=== PATIENT | female | born 1945 | race Caucasian/White ===

== ENCOUNTER 2017-11-21 09:00 | Outpatient (RCR) | payer MEDICARE, OTHER ==
[2016-12-14 13:11] VITALS: BMI 30.8
--- NOTE | 2017-10-17 10:16 | PT INITIAL EVALUATION ---
MEDICAL DIAGNOSIS: Back Pain TREATMENT DIAGNOSIS: Back Pain, Thoracic Dysfunction, Generalized Weakness DATE OF ONSET: 10/17/17 SUBJECTIVE: Dori is 71 year-old female presenting to physical therapy following a recent acute on chronic bout of thoracic back pain with radiating symptoms and general UE muscular weakness. Pt reports that pain really increased about 3 weeks ago and has since been about a 8/10 most of the time. Pain increases throughout the day with ADL's and can increase to a 10/10. Pain is currently located between T1-T11 with radiation out to B shoulders and mid ribs. When pain is at it's worst it travels up into the neck, down into the lumbar spine and B fingers get numb with pins and needle sensations. Pt reports that throughout the day her arms feel more fatigued and she can't play with her grandkids like she used to because she is so tired. Pain is not relieved with lying on the couch or bed. REHAB PROBLEM LIST: Increased Pain Decreased ROM Impaired Bed Mobility Decreased Strength Decreased Endurance Decreased Function Decreased ADL's PREVIOUS MEDICAL HISTORY: Hx of breast CA, PT treatment for shoulder impingement in the past secondary to axillary cording. OCCUPATION: Retired OBJECTIVE: Posture: Pt has moderate thoracic kyphosis with forward head and rounded shoulders. ROM: UE ROM full without pain B but with fatigue. Thoracic ROM: Ext-severe restrictions with mild pain in thoracic, flex- full without pain, R rotation-full with high pain radiating into R deltoid region, L rotation- moderate restrictions with slight pain in thoracic spine Palpation: Pt is tender to palpation from T1-T11 and laterally to the level of the GH joint B. Sensation: UE sensation intact to light touch Special Tests: Colin Repeated motion: Ext: no change in pain status with improved ROM with repetitions, L rotation: centralization of pain to within 2 inches of thoracic spine on L and 3 inches on R to the level of T6-9. Other Objective Findings: Neck pain and Disability Index: ASSESSMENT: Pt shows signs and symptoms consistent with thoracic dysfunction with neural impingement resulting in radiating pain and generalized UE weakness. PT is indicated to address the above listed deficits to return pt to prior level of function and decrease pain. Short Term Goals In 2 weeks pt will centralize pain to the thoracic spine only without radiation for increased functional ability to perform ADL's. In 2 weeks pt will decrease pain to <5/10 for increased functional ability to perform ADL's. In 4 weeks pt will increase UE strength to >4/5 for improved functional ability to perform ADL's. In 4 weeks pt will decrease pain to <3/10 for increased functional ability to perform ADL's. Patient's Goals Decrease thoracic pain. PLAN: Patient to be seen for Manual Therapy/STM/MET Strengthening/condition Ice/Heat Range of Motion Spinal Stabilization Ultrasound Stretching Iontophoresis Neuromuscular Re-ed Closed Chain Program Electrical Stim Posture/Body mechanics Biofeedback Home Exercise Program Mech./Manual Traction Therapeutic Activities 3x/Week for 4 Weeks If you have any questions, comments, or concerns about this report or plan, please contact me at . Thank you, Ignrid Hernandez, PT, DPT, CLT MTDD
[~2017-11-21 09:00] MED LIST: AA/A14DR7 OT; ACE3 PO; ACET-1966 PO; ALPR-1 PO; AMOX-362 PO; AMOX-559 PO; ASCO-182 PO; ASPI-1471 PO; ASPI81TA94 PO; ATOR20TA22 PO; ATOR20TA65 PO; ATR10 PO; AZI250 PO; AZIT-17 PO; BACDS PO; CALC500T6 PO; CELE-1 PO; CEPH-13 PO; CETI-176 PO; CHEMO; CHOL10005 PO; CIPR500S3 PO; CITA-139 PO; CITA-156 PO; CYC10 PO; CYCL10TA29 PO; DEX4 PO; DOCU-202 PO; DULO30CA6 PO; ERTA1VIA2 IV; FLU45SYR25 IM ONLY; HYDR-2966 PO; HYDR-4309 PO; HYDR473S4 PO; IBUP-1618 PO; IBUP-56 PO; INSU100C14 SQ; INSU100V24 SQ; LEVO750T27 PO; LINA5TAB PO; LIS10 PO; LISI20TA29 PO; LOR5 PO; LOR5/325 PO; MAGN400T36 PO; MECL-205 PO; MECL25TA9 PO; MET50 PO; MET500 PO; METF-420 PO; METH4TAB66 PO; METO100T20 PO; NAP500 PO; NIT4 SL; NOVOLINRPT IJ; NPH,100V12 SQ; NPH,100V2 SQ; NPH,100V2 SUBQ; NYST15CR32 TP; ONDA8TAB94 PO; OSE75 PO; OXYGENHOME INH; PENI-22 PO; PENI-24 PO; PER PO; PHEN200T32 PO; PHENA200 PO; PNEU0.5D3 IM; PRED-1 PO; PREDNISONE; PROM5SYR PO; SPIR1TAB26 PO; SULF-198 PO; TRAM-420 PO; VANC1FRO2 IV; [UNRECOGNIZED DRUG - CODE] PO; [UNRECOGNIZED DRUG - CODE] PO; [UNRECOGNIZED DRUG - CODE] PO; [UNRECOGNIZED DRUG - REMARK]; [UNRECOGNIZED DRUG - REMARK]
--- NOTE | 2017-11-21 09:37 | PT PLAN OF CARE ---
Physician: Enriqueta Hodge APRN [employer]-C Patient is being seen: 2x/Week Therapist: Ingrid Hernandez, PT, DPT, CLT Medical Diagnosis: Back Pain Treatment Diagnosis: Back Pain, Thoracic Dysfunction, Generalized Weakness Date of Onset: 10/17/17 Date of Initial Evaluation: 10/17/17 Date patient was last seen: 11/21/17 Number of treatments: 6 Number of cancellations/No shows: 2 INTERVENTIONS: Manual Therapy/STM/MET Strengthening/condition Ice/Heat Range of Motion Spinal Stabilization Ultrasound Stretching Iontophoresis Neuromuscular Re-ed Closed Chain Program Electrical Stim Posture/Body mechanics Biofeedback Home Exercise Program Mech./Manual Traction Therapeutic Activities GOALS: In 2 weeks pt will centralize pain to the thoracic spine only without radiation for increased functional ability to perform ADL's. MET In 2 weeks pt will decrease pain to <5/10 for increased functional ability to perform ADL's. MET In 4 weeks pt will increase UE strength to >4/5 for improved functional ability to perform ADL's. MET In 4 weeks pt will decrease pain to <3/10 for increased functional ability to perform ADL's. MET PATIENT'S GOAL: Decrease thoracic pain. Status of Patient's Goals: 4/4 Goals MET Patient Compliance: Excellent Prognosis: Good Reasons for continuing therapy: Dori is to discharge from physical therapy at this time secondary to completion of 4/4 functional goals. At the time of discharge pt reported no pain and that she was very compliant with her HEP. Upper extremity strength was full and equal bilaterally and thoracic mobility was full without pain. Pt reported that she had increased function with ADL's including doing laundry, cooking and keeping up with her grandchildren. Pt is to continue with HEP at this time to maintain functional strength and mobility. Posture: Pt has minimal thoracic kyphosis with forward head and rounded shoulders. ROM: UE ROM full without pain B. Thoracic ROM: Full without pain Strength: B Flexion/ext: 4+/5, IR B: 4/5, all others 5/5 B. Special Tests: Neck Pain Disability Index Score: 3/50 If you have any questions or concerns, please feel free to contact me at [phone]. Thank you, Ingrid Hernandez, PT, DPT, CLT [facility]
== END 2017-11-21 18:00 | disposition home or self-care (01) ==
LOC: PT 09:00
PROVIDERS: ATTEND Nurse Practitioner Family
DX: M54.6 Pain in thoracic spine (principal); M99.02 Segmental and somatic dysfunction of thoracic region; M62.81 Muscle weakness (generalized); Z85.3 Personal history of malignant neoplasm of breast
CPT/HCPCS: 97161

== ENCOUNTER → 2017-12-06 | Outpatient (CLI) | payer MEDICARE, OTHER ==
[2016-12-14 13:11] VITALS: BMI 30.8
[2017-12-06 16:20] LABS: PLATELET COUNT, AUTOMATED 166 K/uL (150-450)
== END ==
LOC: LAB 16:02
PROVIDERS: ATTEND Nurse Practitioner Family
DX: D64.9 Anemia, unspecified (principal); I10 Essential (primary) hypertension; E11.9 Type 2 diabetes mellitus without complications; Z79.4 Long term (current) use of insulin
CPT/HCPCS: 36415; 82040; 82247; 82310; 82374; 82435; 82565; 82947; 83036; 84075; 84132; 84155; 84295; 84439; 84443; 84450; 84460; 84481; 84520; 85025

== ENCOUNTER → 2017-12-08 | Outpatient (CLI) | payer MEDICARE, OTHER ==
[2016-12-14 13:11] VITALS: BMI 30.8
--- NOTE | 2017-12-08 11:46 | RADIOLOGY IMAGING REPORT ---
FACILITY: [facility] - [place] PATIENT NAME: Dori Reddy : 1945 MR: [id number] V: [id number] EXAM DATE: ORDERING PHYSICIAN: ELICEO GONG TECHNOLOGIST: Location: [facility] - [place] Patient: Dori Reddy : 1945 Visit/Account:[id number] Date of Sevice: 12/08/2017 Exam type: RIBS RIGHT History: right rib pain - hx of breast ca Comparison: PA and lateral chest June 07, 2017. Findings: There is chronic elevation of the right hemidiaphragm and chronic prominence of bronchovascular radames ngs the lower lung masno. No acute areas of pulmonary consolidation identified. Cardiac silhouette is normal in size. There are surgical clips in the right axillary region. A BB was placed over the location of patient's pain which projects over the anterior lower right ribs. There is no evidence of acute fracture, or lytic or blastic bone lesion. Peritendinous calcifications the right shoulder are present IMPRESSION: 1. No evidence of acute fracture, lytic or blastic bone lesion involving the right ribs. Chronic lung changes unchanged Report Dictated By: Nat Barnett MD at 12/08/2017 11:39 AM Report E-Signed By: Nat Barnett MD at 12/08/2017 11:42 AM WSN:[email or web address]
--- NOTE | 2017-12-08 11:48 | RADIOLOGY IMAGING REPORT ---
FACILITY: [facility] PATIENT NAME: Dori Reddy : 1945 MR: [id number] V: [id number] EXAM DATE: ORDERING PHYSICIAN: ELICEO GONG TECHNOLOGIST: Location: [facility] - [place] Patient: Dori Reddy : 1945 Visit/Account:[id number] Date of Sevice: 12/08/2017 Exam type: THORACIC SPINE 3 VIEWS History: thoracic back pain - hx of breast ca Comparison: March 07, 2009. Findings: There is a gentle dextroconvex scoliosis of the thoracic spine. There are moderate multilevel spondy lotic changes of the thoracic spine with moderate disc space narrowing and marginal osteophytes most prominent in the mid to lower thoracic spine which have increased when compared to the prior study. No evidence of acute fractures or subluxations seen IMPRESSION: 1. Moderate multilevel spondylotic changes of the thoracic spine which have increased when compared to the prior study Report Dictated By: Nat Barnett MD at 12/08/2017 11:42 AM Report E-Signed By: Nat Barnett MD at 12/08/2017 11:44 AM WSN:[email or web address]
== END ==
LOC: RAD 11:00
PROVIDERS: ATTEND Nurse Practitioner Family
DX: M47.894 Other spondylosis, thoracic region (principal)
CPT/HCPCS: 71100; 72072

== ENCOUNTER → 2017-12-26 | Outpatient (CLI) | payer MEDICARE, OTHER ==
[2016-12-14 13:11] VITALS: BMI 30.8
[~2017-12-26] MED LIST changes: +BENZ200C15 PO; +ESCI5TAB10 PO
--- NOTE | 2017-12-26 15:33 | RADIOLOGY IMAGING REPORT ---
FACILITY: [facility] - [place] PATIENT NAME: Dori Reddy : 1945 MR: [id number] V: [id number] EXAM DATE: ORDERING PHYSICIAN: ELICEO GONG TECHNOLOGIST: Location: [facility] - [place] Patient: Dori Reddy : 1945 Visit/Account:[id number] Date of Sevice: 12/26/2017 CHEST PA AND LAT Indication: cough / hypoxia Comparison: Chest x-ray 06/07/2017 Findings: Lungs: Right hemidiaphragm is elevated, unchanged. Interstitial linear densities are seen in the per iphery of both lungs, stable. There is no acute airspace opacity. Mediastinum/pulmonary vasculature: Heart size and pulmonary vasculature are normal. Bones/soft tissues: Normal. IMPRESSION: 1. No acute airspace opacity or pneumonia. 2. Chronic interstitial changes both lungs, stable. Report Dictated By: Uriel Ochoa at 12/26/2017 3:27 PM Report E-Signed By: Uriel Ochoa at 12/26/2017 3:28 PM WSN:[email or web address]
== END ==
LOC: RAD 14:56
PROVIDERS: ATTEND Nurse Practitioner Family
DX: R05 Cough (principal); R09.02 Hypoxemia
CPT/HCPCS: 71046

== ENCOUNTER → 2018-02-08 | Outpatient (CLI) | payer MEDICARE, OTHER ==
[2016-12-14 13:11] VITALS: BMI 30.8
[2018-02-08 11:20] LABS: PLATELET COUNT, AUTOMATED 181 K/uL (150-450)
--- NOTE | 2018-02-08 13:57 | RADIOLOGY IMAGING REPORT ---
FACILITY: [facility] PATIENT NAME: Dori Reddy : 1945 MR: [id number] V: [id number] EXAM DATE: ORDERING PHYSICIAN: AMARI WORRELL TECHNOLOGIST: Location: [facility] Patient: Dori Reddy : 1945 Visit/Account:[id number] Date of Sevice: 02/08/2018 Exam type: CHEST PA AND LAT History: Chest heaviness and R chest wall pain x3 weeks Comparison: December 26, 2017. Findings: Chronic pleural parenchymal scarring throughout the lungs most prominent in the lung bases appear sim ilar to the prior study. There is no evidence of acute-appearing pulmonary consolidation pleural eff usions or overt pulmonary edema. No evidence of pneumothorax or pneumomediastinum. Cardiac silhouet te is normal in size. There is a gentle dextroconvex scoliosis of the thoracic spine and moderate sp ondylotic changes. IMPRESSION: 1. Pleural parenchymal scarring bilaterally throughout the lungs although no evidence of acute pulmo nary consolidation Report Dictated By: Nat Barnett MD at 02/08/2018 1:50 PM Report E-Signed By: Nat Barnett MD at 02/08/2018 1:54 PM WSN:[email or web address]
== END ==
LOC: LAB 10:59
PROVIDERS: ATTEND Nurse Practitioner Primary Care
DX: M47.894 Other spondylosis, thoracic region (principal); R91.8 Other nonspecific abnormal finding of lung field
CPT/HCPCS: 36415; 71046; 82040; 82247; 82310; 82374; 82435; 82565; 82947; 84075; 84132; 84155; 84295; 84450; 84460; 84520; 85025

== ENCOUNTER → 2018-02-13 | Outpatient (CLI) | payer MEDICARE, OTHER ==
[2016-12-14 13:11] VITALS: BMI 30.8
--- NOTE | 2018-02-15 16:03 | RADIOLOGY IMAGING REPORT ---
FACILITY: [facility] PATIENT NAME: Dori Reddy : 1945 MR: [id number] V: [id number] EXAM DATE: ORDERING PHYSICIAN: AMARI WORRELL TECHNOLOGIST: Location: [facility] Patient: Dori Reddy : 1945 Visit/Account:[id number] Date of Sevice: 02/13/2018 WHOLE BODY BONE SCAN HISTORY: Chest wall pain, history of breast cancer TECHNIQUE: 24.6 mCi technetium 99m HDP was injected intravenously. Delayed anterior and posterior wh ole body gamma camera images were obtained. Additional gamma camera images: Right and left lateral skull COMPARISON: Cervical spine series October 29, 2013 thoracic spine December 08, 2017 CT chest June 07, 2017 FINDINGS: Bone radiotracer activity: Degenerative type uptake seen over the knees and ankles and feet Increased uptake seen over the cervical and thoracic spine consistent with the previous plain film fi ndings of degenerative arthritis. There is a focal area of isotope uptake seen over the medial aspect of a posterior right rib Extraosseous radiotracer activity: There is increased as well uptake over the right breast to lesser extent left breast. Renal and urinary collecting system activity: Unremarkable. IMPRESSION: Multifocal areas of degenerative type uptake Faint uptake seen over the medial aspect of an inferior right rib. This could be related to prior tr auma although correlation with plain film or CT recommended Isotope uptake is seen over the breasts, right greater than left. Given the clinical history of ches t wall pain and history of right breast cancer follow up breast MR with and without contrast recommen ded for further evaluation Report Dictated By: Nat Barnett MD at 02/15/2018 3:49 PM Report E-Signed By: Nat Barnett MD at 02/15/2018 3:59 PM WSN:[email or web address]
== END ==
LOC: NUC 01:24
PROVIDERS: ATTEND Nurse Practitioner Primary Care
DX: R92.8 Other abnormal and inconclusive findings on diagnostic imaging of breast (principal)
CPT/HCPCS: 78306; A9503

== ENCOUNTER → 2018-02-15 | Outpatient (CLI) | payer MEDICARE, OTHER ==
[2016-12-14 13:11] VITALS: BMI 30.8
--- NOTE | 2018-02-16 14:00 | RADIOLOGY IMAGING REPORT ---
FACILITY: [facility] PATIENT NAME: ALEK LOCKETT : [id number] MR: [id number] V: [id number] EXAM DATE: [id number] ORDERING PHYSICIAN: ELICEO GONG TECHNOLOGIST: Urvashi George PROCEDURE:BILATERAL DIAGNOSTIC DIGITAL MAMMOGRAM WITH CAD ASSISTED INTERPRETATION & 3D TOMOSYNTHESIS COMPARISON:Prior mammograms 07/26/17, 12/07/16, 07/07/16. INDICATIONS:PRIOR HISTORY OF RIGHT BREAST CANCER/ABNORMAL MAMMO FINDINGS: The Right breast is smaller than the Left consistent with previous lumpectomy. There is also skin thickening over the Right breast consistent with prior radiation therapy. Area of architectural distortion in the upper outer quadrant of the Right breast again seen which has remained stable likely related to postsurgical scaring. The parenchymal pattern throughout the Left breast has also remained stable. There was no demonstration of malignant appearing mass or calcifications in either breast at this time. The previously noted flame shaped area of increased density projecting over the chest wall in the upper portion of breast on the prior Left MLO view is no longer seen. DIAGNOSTIC CATEGORY 0--INCOMPLETE: NEED ADDITIONAL IMAGING EVALUATION. RECOMMENDATIONS: BREAST MRI: BILATERAL BREASTS. IMPRESSION: BIRADS 0: Incomplete No mammographic abnormality identified at this time other than postsurgical scaring upper outer quadrant of the Right breast. A bilateral breast MR with and without contrast however is recommended to follow-up findings described in the prior MR dated 08/03/17. Dictated by: Nat Barnett M.D. on 02/15/2018 at 16:54 Transcribed by: RADHA on 02/16/2018 at 11:14 Approved by: Nat Barnett M.D. on 02/16/2018 at 13:59 [facility]
== END ==
LOC: MAMO 01:00
PROVIDERS: ATTEND Nurse Practitioner Family
DX: R92.8 Other abnormal and inconclusive findings on diagnostic imaging of breast (principal)
CPT/HCPCS: 77066

== ENCOUNTER → 2018-02-21 | Outpatient (CLI) | payer MEDICARE, OTHER ==
[2016-12-14 13:11] VITALS: BMI 30.8
[~2018-02-21] MED LIST changes: +GADOBENATE 529MG/1ML 15ML VIAL IVP ONE; +NITR-105 PO; +NS 0.9% 20 ML SDV 40 ML ONE
--- NOTE | 2018-02-23 16:21 | RADIOLOGY IMAGING REPORT ---
FACILITY: [facility] PATIENT NAME: ALEK LOCKETT : [id number] MR: [id number] V: [id number] EXAM DATE: [id number] ORDERING PHYSICIAN: ELICEO GONG TECHNOLOGIST: Cassie Lawrence PROCEDURE:BREAST BILATERAL W/O AND/OR WITH CONTRAST COMPARISON:Most recent mammograms 02/15/18, Total Body Bone Scan 02/13/18, Prior Breast MR 08/03/17. INDICATIONS:ABNORMAL MAMMO/6 MONTH FOLLOW UP TECHNIQUE: All imaging was performed prone in a dedicated breast coil. Axial & coronal T1 weighted images, axial T2 STIR & gradient echo imaging was performed of both breasts. Axial T1 weighted Fat Sat dynamically enhanced imaging was performed of both breasts using 5 dynamic sequences. The dynamic series was timed for a 90 sec peak. Subtraction imaging was performed. 15ml Multihance was utilized for the post contrast portion of the examination. Post processing was performed using the [employer] workstation. FINDINGS: Small amount of fibroglandular tissue is seen throughout the breasts. Again noted is postsurgical scarring & architectural distortion in the upper outer quadrant of the Right breast from prior lumpectomy. Skin thickening is also noted in the Right breast from prior radiation therapy. In the retroareolar portion of the Right breast immediately adjacent to an area of scarring, there is a small area of contrast enhancement with a 153% peak in plateau kinetics. This is likely related to the Right nipple & could represent an area of fat necrosis. The previously noted small areas of round contrast enhancement in the 12 o'clock position of the Right breast above the areola and in the 11 o'clock position of the Right breast in Zone 3 are barely perceptible at this time. In the retroareolar portion of the Left breast there is a small rounded area of enhancement with a 124% peak in persistent kinetics. This finding is also unchanged when compared to the prior study & may be related to Left nipple or possibly a small amount of fat necrosis. No abnormal areas of masslike or nonmasslike enhancement are identified in either breast. No pathologic appearing adenopathy is seen. No abnormal enhancement identified over the chest wall. The visualized portion of the liver & visualized bones are unremarkable. DIAGNOSTIC CATEGORY 2--BENIGN FINDING. RECOMMENDATIONS: ROUTINE MAMMOGRAM AND CLINICAL EVALUATION. IMPRESSION: BIRADS 2: Benign finding No abnormal areas of masslike or nonmasslike enhancement are identified to suggest recurrent or metastatic breast disease. PLEASE NOTE:A NORMAL MRI DOES NOT EXCLUDE THE POSSIBILITY OF BREAST CANCER. A CLINICALLY SUSPICIOUS PALPABLE LUMP SHOULD BE BIOPSIED. CORRELATION WITH CLINICAL EXAM AND OTHER IMAGING STUDIES IS RECOMMENDED. Dictated by: Nat Barnett M.D. on 02/22/2018 at 15:54 Transcribed by: MJ on 02/23/2018 at 10:37 Approved by: Nat Barnett M.D. on 02/23/2018 at 16:20 [facility]
== END ==
LOC: MRI 01:09
PROVIDERS: ATTEND Nurse Practitioner Family
DX: R92.8 Other abnormal and inconclusive findings on diagnostic imaging of breast (principal)
CPT/HCPCS: 0159T; A9577; C8908; J7050; 77059

== ENCOUNTER → 2018-02-22 | Outpatient (CLI) | payer MEDICARE, OTHER ==
[2016-12-14 13:11] VITALS: BMI 30.8
[~2018-02-22] MED LIST changes: -GADOBENATE 529MG/1ML 15ML VIAL IVP ONE; -NS 0.9% 20 ML SDV 40 ML ONE
== END ==
LOC: LAB 11:21
PROVIDERS: ATTEND Nurse Practitioner Primary Care
DX: N30.00 Acute cystitis without hematuria (principal); R82.79 Other abnormal findings on microbiological examination of urine
CPT/HCPCS: 87088

== ENCOUNTER → 2018-02-27 | Outpatient (CLI) | payer MEDICARE, OTHER ==
[2016-12-14 13:11] VITALS: BMI 30.8
== END ==
LOC: LAB 16:10
PROVIDERS: ATTEND Nurse Practitioner Primary Care
DX: N39.0 Urinary tract infection, site not specified (principal)
CPT/HCPCS: 81001

== ENCOUNTER 2018-06-11 06:47 | Emergency (ER) | payer MEDICARE, OTHER ==
[2016-12-14 13:11] VITALS: Wt 70.8 kg
[~2018-06-11 06:47] MED LIST changes: -CITA-139 PO; +CITA-145 PO; +FLUC150T40 PO; +FLUT9.9S IH; -METF-420 PO; +METF-421 PO
[2018-06-11 07:30] VITALS: BP 131/58
[2018-06-11] MEDS ORDERED: CEPHALEXIN MONO 500 MG CAP PO ONE (07:30)
[2018-06-11] MEDS ORDERED: PHENAZOPYRIDINE 200 MG TAB PO ONE (07:35)
--- NOTE | 2018-06-11 07:37 | ER Report ---
History and Physical Time Seen By MD: 07:00 Hx. of Stated Complaint: PATIENT REPORTS THAT SHE STARTED HAVING SYMPTOMS OF A UTI LAST NIGHT. SHE REPORTS FREQUENT UTI'S HPI/ROS Presents with urinary urgency, frequency, and urgency. No hematuria, No fever/ chills, no back pain. No abdominal pain other than suprapubic spasm. Allergies: Coded Allergies: hydrochlorothiazide (Verified Allergy, Intermediate, GI DISTRESS, 12/19/16) "THINK IT WAS CAUSING PANCREATITIS" celecoxib (Verified Adverse Reaction, Mild, ITCHING, 12/19/16) duloxetine (Verified Adverse Reaction, Unknown, 12/26/17) dysphagia Home Meds Active Scripts Phenazopyridine Hcl (PHENAZOPYRIDINE HCL) 200 Mg Tablet, 200 MG PO TID for 2 Days, #6 TAB Prov:JORGE ORELLANA MD 06/11/18 Cephalexin 500 Mg Tab (KEFLEX 500 MG TAB) 500 Mg Tablet, 500 MG PO BID for 7 Days, #14 TAB Prov:JORGE ORELLANA MD 06/11/18 Tramadol Hcl (TRAMADOL HCL) 50 Mg Tablet, 1 TAB PO TID Y for PAIN, #90 TAB 2 Refills Prov:ELICEO GONG APRN 04/28/18 Citalopram Hydrobromide (CITALOPRAM HBR) 20 Mg Tablet, 1 TAB PO QDAY, #90 TAB 1 Refill Prov:ELICEO GONG APRN 04/28/18 Metoprolol Succinate (METOPROLOL SUCCINATE) 100 Mg Tab.er.24h, 1 TAB PO BID, # 180 TAB 1 Refill Prov:ELICEO GONG APRN 04/28/18 Insulin NPH Human Isophane (Humulin N) 100 Unit/Ml Vial, 20-40 UNITS SQ BID, #6 VIAL 1 Refill 40 units every morning and 20 units every evening. Prov:ELICEO GONG APRN 04/28/18 Atorvastatin Calcium (ATORVASTATIN CALCIUM) 20 Mg Tablet, 1 TAB PO QDAY, #90 TAB 1 Refill Prov:ELICEO GONG APRN 04/28/18 Metformin Hcl (METFORMIN HCL) 1,000 Mg Tablet, 1 TAB PO BID, #180 TAB 1 Refill Prov:ELICEO GONG APRN-C 04/28/18 Fluticasone Propionate (Flonase Allergy Relief) 9.9 Ml [place].susp, 2 EA IH DAILY , #1 BOTTLE 1 Refill Prov:ELICEO GONG APRN-C 04/06/18 Fluconazole (DIFLUCAN) 150 Mg Tablet, 1 TAB PO Q72H, #2 TAB 0 Refills Prov:ELICEO GONG APRN-C 04/06/18 Oxygen (OXYGEN) Inha, 2 L INH Continuous, #2 L Prov:ELICEO GONG APRN-C 06/07/17 [Second Hand Smoke] No Conflict Check Prov:ELICEO GONG APRN-C 06/07/17 Meclizine Hcl (MECLIZINE HCL) 25 Mg Tablet, 1 TAB PO BID Y for DIZZINESS, #14 TAB 5 Refills Prov:ELICEO GONG APRN-C 06/07/17 Reported Medications Aspirin (ASPIR 81) 81 Mg Tablet.dr, 1 TAB PO QDAY, TAB 12/14/16 Cholecalciferol (Vitamin D3) (VITAMIN D3) 1,000 Unit Tablet, 1 CAP PO QDAY, TAB 08/05/16 Hx Smoking: No Smoking Status: Never Smoker Exposure to Second Hand Smoke?: Yes (daughter who lives with her smokes) Hx Substance Use Disorder: No Hx Alcohol Use: Yes Constitutional Vital Sign - Last 24 Hours 06/11/18 06/11/18 06/11/18 06/11/18 06:52 06:55 07:00 07:17 Temp 97.7 Pulse 62 57 Resp 20 B/P (MAP) 140/58 (85) 140/58 138/63 (88) O2 Delivery Room Air 06/11/18 07:30 B/P (MAP) 131/58 (82) Physical Exam GE: A/Ox3 in NAD CV: RRR no m/r/g Lungs: cta b/l Abdomen: soft, NTND DDx: UTI, AAA, kidney stone, appendicitis, Medical Decision Making Data Points Laboratory Hematology Test 06/11/18 06:52 Urine Color Yellow Urine Clarity Cloudy Urine pH 7.0 pH (4.8-9.5) Urine Specific [place] 1.015 Urine Protein 30 mg/dL (NEGATIVE) Urine Glucose (UA) Negative mg/dL (NEGATIVE) Urine Ketones Negative mg/dL (NEGATIVE) Urine Blood Moderate (NEGATIVE) Urine Nitrite Negative (NEGATIVE) Urine Bilirubin Negative (NEGATIVE) Urine Urobilinogen Negative mg/dL (0.2-1.9) Urine Leukocyte Esterase Large (NEGATIVE) Urine RBC 93 /HPF (0-2/HPF) Urine WBC 591 /HPF (0-5/HPF) Urine Squamous Epithelial Cells Many /LPF (</=FEW) Urine Renal Epithelial Cells Many /LPF (NONE-FEW) Urine Bacteria Negative /HPF (NONE-FEW) Urine Mucus None /HPF (NONE-FEW) Urine Yeast (Budding) Many /HPF Chemistry Test 06/11/18 06:52 Urine Color Yellow Urine Clarity Cloudy Urine pH 7.0 pH (4.8-9.5) Urine Specific [place] 1.015 Urine Protein 30 mg/dL (NEGATIVE) Urine Glucose (UA) Negative mg/dL (NEGATIVE) Urine Ketones Negative mg/dL (NEGATIVE) Urine Blood Moderate (NEGATIVE) Urine Nitrite Negative (NEGATIVE) Urine Bilirubin Negative (NEGATIVE) Urine Urobilinogen Negative mg/dL (0.2-1.9) Urine Leukocyte Esterase Large (NEGATIVE) Urine RBC 93 /HPF (0-2/HPF) Urine WBC 591 /HPF (0-5/HPF) Urine Squamous Epithelial Cells Many /LPF (</=FEW) Urine Renal Epithelial Cells Many /LPF (NONE-FEW) Urine Bacteria Negative /HPF (NONE-FEW) Urine Mucus None /HPF (NONE-FEW) Urine Yeast (Budding) Many /HPF Urinalysis Test 06/11/18 06:52 Urine Color Yellow Urine Clarity Cloudy Urine pH 7.0 pH (4.8-9.5) Urine Specific [place] 1.015 Urine Protein 30 mg/dL (NEGATIVE) Urine Glucose (UA) Negative mg/dL (NEGATIVE) Urine Ketones Negative mg/dL (NEGATIVE) Urine Blood Moderate (NEGATIVE) Urine Nitrite Negative (NEGATIVE) Urine Bilirubin Negative (NEGATIVE) Urine Urobilinogen Negative mg/dL (0.2-1.9) Urine Leukocyte Esterase Large (NEGATIVE) Urine RBC 93 /HPF (0-2/HPF) Urine WBC 591 /HPF (0-5/HPF) Urine Squamous Epithelial Cells Many /LPF (</=FEW) Urine Renal Epithelial Cells Many /LPF (NONE-FEW) Urine Bacteria Negative /HPF (NONE-FEW) Urine Mucus None /HPF (NONE-FEW) Urine Yeast (Budding) Many /HPF ED Course/Re-evaluation ED Course Uncomplicated UTI. Not worrisome for AAA or other intraabdominal pathology. Urine culture sent. No fever/chills. No flank pain. Given Keflex and pyridium. Will follow up with PCM this week. Decision to Disposition Date: Jun 11, 2018 Decision to Disposition Time: 07:37 Depart Departure Latest Vital Signs Vital Signs Date Time Temp Pulse Resp B/P (MAP) Pulse Ox O2 Delivery O2 Flow Rate FiO2 06/11/18 07:30 131/58 (82) 06/11/18 07:17 57 06/11/18 06:55 97.7 20 Room Air Impression: Primary Impression: Urinary tract infection Condition: Improved Disposition: HOME OR SELF-CARE Referrals: ELICEO GONG APRN TELEVISION AUDIO ENGINEER-C (PCP) New Scripts Phenazopyridine Hcl (PHENAZOPYRIDINE HCL) 200 Mg Tablet 200 MG PO TID for 2 Days, #6 TAB Prov: JORGE ORELLANA MD 06/11/18 Cephalexin 500 Mg Tab (KEFLEX 500 MG TAB) 500 Mg Tablet 500 MG PO BID for 7 Days, #14 TAB Prov: JORGE ORELLANA MD 06/11/18 Departure Forms: Medications Reconciliation, Patient Portal Information, ER Transition Record Patient Instructions: Urinary Tract Infection in Women (ED) Problem Qualifiers Primary Impression: Urinary tract infection Urinary tract infection type: acute cystitis Hematuria presence: without hematuria Qualified Codes: N30.00 - Acute cystitis without hematuria JORGE ORELLANA MD Jun 11, 2018 07:37
[2018-06-11] MEDS ORDERED: CEPH500T7 PO (07:44)
[2018-06-11] MEDS ORDERED: PHEN200T32 PO (07:44)
== END 2018-06-11 07:50 | disposition home or self-care (01) ==
LOC: ER 06:59
DX: N39.0 Urinary tract infection, site not specified (principal)
CPT/HCPCS: 81001; 87088; 99283; A9270

== ENCOUNTER 2018-06-16 17:45 | Emergency (ER) | payer MEDICARE, OTHER ==
[2016-12-14 13:11] VITALS: Wt 70.8 kg
[~2018-06-16 17:45] MED LIST changes: +CEPH500T7 PO
--- NOTE | 2018-06-16 17:52 | ER Report ---
History and Physical Time Seen By : 17:52 HPI/ROS CHIEF COMPLAINT: Continued urine HISTORY OF PRESENT ILLNESS: 72-year-old female patient presents to emergency room with complaint of being called about a contaminated urine. She was seen here on 11 June with complaints of pain or abdomen. Urinalysis at that time showed large leukocyte esterase, 500 white blood cells in her urine. She states she started on Keflex. She was discharged home. They did culture her urine. She got called that the urine was contaminated they're unsure. If she is having persistent problems he recommended that she come in for evaluation. Patient states she still having some problems. She states she has pain that radiates on the right side up to the back. She denies having any fevers, chills, nausea, vomiting or diarrhea. Patient states she has been taking her medications prescribed. Allergies: Coded Allergies: hydrochlorothiazide (Verified Allergy, Intermediate, GI DISTRESS, 12/19/16) "THINK IT WAS CAUSING PANCREATITIS" celecoxib (Verified Adverse Reaction, Mild, ITCHING, 12/19/16) duloxetine (Verified Adverse Reaction, Unknown, 12/26/17) dysphagia Home Meds Active Scripts Tramadol Hcl (TRAMADOL HCL) 50 Mg Tablet, 1 TAB PO TID Y for PAIN, #90 TAB 2 Refills Prov:ELICEO GONG APRN-Derrell 04/28/18 Citalopram Hydrobromide (CITALOPRAM HBR) 20 Mg Tablet, 1 TAB PO QDAY, #90 TAB 1 Refill Prov:ELICEO GONG APRN-Derrell 04/28/18 Metoprolol Succinate (METOPROLOL SUCCINATE) 100 Mg Tab.er.24h, 1 TAB PO BID, # 180 TAB 1 Refill Prov:ELICEO GONG APRNC 04/28/18 Insulin NPH Human Isophane (Humulin N) 100 Unit/Ml Vial, 20-40 UNITS SQ BID, #6 VIAL 1 Refill 40 units every morning and 20 units every evening. Prov:ELICEO GONG APRN-C 04/28/18 Atorvastatin Calcium (ATORVASTATIN CALCIUM) 20 Mg Tablet, 1 TAB PO QDAY, #90 TAB 1 Refill Prov:ELICEO GONG APRN-C 04/28/18 Metformin Hcl (METFORMIN HCL) 1,000 Mg Tablet, 1 TAB PO BID, #180 TAB 1 Refill Prov:ELICEO GONG MOHSEN LRP- 04/28/18 Oxygen (OXYGEN) Inha, 2 L INH Continuous, #2 L Prov:ELICEO GONG MOHSEN [facility] 06/07/17 [Second Hand Smoke] No Conflict Check Prov:YOUSUFAURELIO HARVEYBESSIE LONDONO 06/07/17 Meclizine Hcl (MECLIZINE HCL) 25 Mg Tablet, 1 TAB PO BID Y for DIZZINESS, #14 TAB 5 Refills Prov:ELICEO GONG [facility]EN [facility] 06/07/17 Reported Medications Aspirin (ASPIR 81) 81 Mg Tablet.dr, 1 TAB PO QDAY, TAB 12/14/16 Cholecalciferol (Vitamin D3) (VITAMIN D3) 1,000 Unit Tablet, 1 CAP PO QDAY, TAB 08/05/16 Discontinued Scripts Phenazopyridine Hcl (PHENAZOPYRIDINE HCL) 200 Mg Tablet, 200 MG PO TID for 2 Days, #6 TAB Prov:JORGE ORELLANA MD 06/11/18 Cephalexin 500 Mg Tab (KEFLEX 500 MG TAB) 500 Mg Tablet, 500 MG PO BID for 7 Days, #14 TAB Prov:JORGE ORELLANA MD 06/11/18 Fluticasone Propionate (Flonase Allergy Relief) 9.9 Ml [place].susp, 2 EA IH DAILY , #1 BOTTLE 1 Refill Prov:ELICEO GONG APRNFormerly [facility] 04/06/18 Fluconazole (DIFLUCAN) 150 Mg Tablet, 1 TAB PO Q72H, #2 TAB 0 Refills Prov:ELICEO GONG APRNFormerly [facility] 04/06/18 Past Medical/Surgical History Patient has a past medical history of high blood pressure, pneumonia, frequent UTI, arthritis, back pain, diabetes, alcohol use, depression, breast cancer. Patient has surgical history of a lumpectomy, port placement. Patient has a family medical history of stroke, diabetes. Reviewed Nurses Notes: Yes Hx Smoking: No Smoking Status: Never Smoker Exposure to Second Hand Smoke?: Yes (daughter who lives with her smokes) Hx Substance Use Disorder: No Hx Alcohol Use: Yes Constitutional Vital Sign - Last 24 Hours 06/16/18 06/16/18 18:03 19:37 Temp 98.0 97.7 Pulse 60 Resp 16 B/P (MAP) 140/82 150/95 (113) Pulse Ox 94 O2 Delivery Room Air Intake and Output 06/16/18 06/16/18 06/17/18 14:59 22:59 06:59 Output Total 50 ml Balance -50 ml Physical Exam General Appearance: The patient is alert, has no immediate need for airway protection and no current signs of toxicity. Respiratory: Chest is non tender, lungs are clear to auscultation. Cardiac: regular rate and rhythm Gastrointestinal: Abdomen is soft and non tender, no masses, bowel sounds normal. Musculoskeletal: Neck: Neck is supple and non tender. Extremities have full range of motion and are non tender. Skin: No rashes or lesions. DIFFERENTIAL DIAGNOSIS: After history and physical exam differential diagnosis was considered for urinary tract infection, pyelonephritis, kidney stone. Medical Decision Making Data Points Laboratory Hematology Test 06/16/18 18:25 Urine Color Straw Urine Clarity Clear Urine pH 5.0 pH (4.8-9.5) Urine Specific [place] 1.008 Urine Protein Negative mg/dL (NEGATIVE) Urine Glucose (UA) Negative mg/dL (NEGATIVE) Urine Ketones Negative mg/dL (NEGATIVE) Urine Blood Negative (NEGATIVE) Urine Nitrite Negative (NEGATIVE) Urine Bilirubin Negative (NEGATIVE) Urine Urobilinogen Negative mg/dL (0.2-1.9) Urine Leukocyte Esterase Negative (NEGATIVE) Urine RBC None /HPF (0-2/HPF) Urine WBC <1 /HPF (0-5/HPF) Urine Squamous Epithelial Cells Few /LPF (NONE-FEW) Urine Bacteria Negative /HPF (NONE-FEW) Urine Mucus None /HPF (NONE-FEW) Chemistry Test 06/16/18 18:25 Urine Color Straw Urine Clarity Clear Urine pH 5.0 pH (4.8-9.5) Urine Specific [place] 1.008 Urine Protein Negative mg/dL (NEGATIVE) Urine Glucose (UA) Negative mg/dL (NEGATIVE) Urine Ketones Negative mg/dL (NEGATIVE) Urine Blood Negative (NEGATIVE) Urine Nitrite Negative (NEGATIVE) Urine Bilirubin Negative (NEGATIVE) Urine Urobilinogen Negative mg/dL (0.2-1.9) Urine Leukocyte Esterase Negative (NEGATIVE) Urine RBC None /HPF (0-2/HPF) Urine WBC <1 /HPF (0-5/HPF) Urine Squamous Epithelial Cells Few /LPF (NONE-FEW) Urine Bacteria Negative /HPF (NONE-FEW) Urine Mucus None /HPF (NONE-FEW) Urinalysis Test 06/16/18 18:25 Urine Color Straw Urine Clarity Clear Urine pH 5.0 pH (4.8-9.5) Urine Specific [place] 1.008 Urine Protein Negative mg/dL (NEGATIVE) Urine Glucose (UA) Negative mg/dL (NEGATIVE) Urine Ketones Negative mg/dL (NEGATIVE) Urine Blood Negative (NEGATIVE) Urine Nitrite Negative (NEGATIVE) Urine Bilirubin Negative (NEGATIVE) Urine Urobilinogen Negative mg/dL (0.2-1.9) Urine Leukocyte Esterase Negative (NEGATIVE) Urine RBC None /HPF (0-2/HPF) Urine WBC <1 /HPF (0-5/HPF) Urine Squamous Epithelial Cells Few /LPF (NONE-FEW) Urine Bacteria Negative /HPF (NONE-FEW) Urine Mucus None /HPF (NONE-FEW) ED Course/Re-evaluation ED Course Patient was admitted and examined, history and physical were obtained. Differential diagnoses were considered. On examination lungs are clear, heart is regular, abdomen was soft and nontender. Patient came in with concerns about a contaminated urine sample. A and out catheter was done and a urine sample was sent down to the lab. The urine was totally clean. At this time is difficult to say if that is secondary to the antibiotics, as the patient did have 560 white blood cells per high-power field and her previous urine. Since she has just a couple of tablets left of antibiotics and will go ahead and have her finish those and follow-up with her primary care provider. I discussed this with the patient who verbalized understanding and agreement with plan. We'll go ahead and discharge her home at this time. Decision to Disposition Date: Jun 16, 2018 Decision to Disposition Time: 19:20 Depart Departure Latest Vital Signs Vital Signs Date Time Temp Pulse Resp B/P (MAP) Pulse Ox O2 Delivery O2 Flow Rate FiO2 06/16/18 19:37 97.7 150/95 (113) 06/16/18 18:03 60 16 94 Room Air Impression: Primary Impression: Urinary tract infection Condition: Improved Disposition: HOME OR SELF-CARE Referrals: ELICEO GONG APRNP-C (PCP) Patient Instructions: Urinary Tract Infection in Women (ED) Additional Instructions: I feel that you likely had a urinary tract infection. The infection was resolved with the antibiotics. Continue with your antibiotics. Limit activity by pain. Increase fluid intake. Follow up with your primary care provider in the next week. Return to the ER if condition worsens. Problem Qualifiers Primary Impression: Urinary tract infection Urinary tract infection type: acute cystitis Hematuria presence: without hematuria Qualified Codes: N30.00 - Acute cystitis without hematuria RUY TRISTAN Jun 16, 2018 17:52
[2018-06-16 19:37] VITALS: BP 150/95
== END 2018-06-16 19:39 | disposition home or self-care (01) ==
LOC: ER 18:02
DX: N30.00 Acute cystitis without hematuria (principal)
CPT/HCPCS: 81001; 99283; A4353

== ENCOUNTER → 2018-06-20 | Outpatient (CLI) | payer MEDICARE, OTHER ==
[2016-12-14 13:11] VITALS: BMI 30.8
[2018-06-20 11:30] LABS: PLATELET COUNT, AUTOMATED 176 K/uL (150-450)
[2018-06-20 11:37] LABS: LDL CHOLESTEROL 68 mg/dl
--- NOTE | 2018-06-20 13:17 | RADIOLOGY IMAGING REPORT ---
FACILITY: [facility] PATIENT NAME: Dori Reddy : 1945 MR: [id number] V: [id number] EXAM DATE: ORDERING PHYSICIAN: ELICEO GONG TECHNOLOGIST: [place] [facility] [place]: Dori Reddy : 1945 Visit/Account:[id number] Date of Sevice: 06/20/2018 LUMBAR SPINE 2 OR 3 VIEW HISTORY: Chronic lower back pain, getting worse COMPARISON: X-ray examination thoracic spine December 08, 2017 FINDINGS: There are 5 nonrib-bearing lumbar-type vertebra. Bony alignment is anatomic. Mild spondylotic narrowi ng is noted at L2-L3 and L3-L4 with moderate narrowing L4-L5 and L5-S1. Endplate spurring is noted th roughout. Increased endplate sclerosis is particularly seen at L4-L5 and L5-S1. No fracture or acute destructive osseous process. IMPRESSION: Mild to moderate multilevel spondylotic changes, most significant L5-S1. Report Dictated By: Jeff Santos MD at 06/20/2018 1:11 PM Report E-Signed By: Jeff Santos MD at 06/20/2018 1:13 PM WSN:[email or web address]
--- NOTE | 2018-06-20 14:17 | RADIOLOGY IMAGING REPORT ---
FACILITY: [facility] PATIENT NAME: Dori Reddy : 1945 MR: [id number] V: [id number] EXAM DATE: ORDERING PHYSICIAN: ELICEO GONG TECHNOLOGIST: Location: [facility] - [place] Patient: Dori Reddy : 1945 Visit/Account:[id number] Date of Sevice: 06/20/2018 Exam type: HIP RIGHT History: right hip pain Comparison: May 17, 2016. Findings: Two views the right hip demonstrate mild narrowing of the right hip joint consistent with mild degene rative arthritis. There is no evidence of acute fracture dislocation, lytic or blastic bone lesion. There are moderate degenerative changes at the pubic symphysis and mild generative changes the visua lized lower lumbar spine. IMPRESSION: 1. Mild degenerative changes of the right hip joint appears similar to the prior study Report Dictated By: Nat Barnett MD at 06/20/2018 2:10 PM Report E-Signed By: Nat Barnett MD at 06/20/2018 2:11 PM WSN:[email or web address]
== END ==
LOC: LAB 11:07
PROVIDERS: ATTEND Nurse Practitioner Family
DX: M16.11 Unilateral primary osteoarthritis, right hip (principal); M47.897 Other spondylosis, lumbosacral region; E11.9 Type 2 diabetes mellitus without complications; C50.911 Malignant neoplasm of unspecified site of right female breast; I10 Essential (primary) hypertension; E78.5 Hyperlipidemia, unspecified
CPT/HCPCS: 36415; 72100; 82040; 82247; 82310; 82374; 82435; 82465; 82565; 82947; 83036; 83718; 84075; 84132; 84155; 84295; 84443; 84450; 84460; 84478; 84520; 85025

== ENCOUNTER → 2018-06-28 | Outpatient (CLI) | payer MEDICARE, OTHER ==
[2016-12-14 13:11] VITALS: BMI 30.8
--- NOTE | 2018-06-28 15:41 | RADIOLOGY IMAGING REPORT ---
[place] [facility] [place]: Dori Reddy : 1945 MR: [id number] V: [id number] EXAM DATE: ORDERING PHYSICIAN: ELICEO GONG TECHNOLOGIST: Location: [facility] [place] Patient: Dori Reddy : 1945 Visit/Account:[id number] Date of Sevice: 06/28/2018 PELVIC HISTORY: Right groin pain TECHNIQUE: Transabdominal and transvaginal ultrasound pelvis. COMPARISON: None. FINDINGS: Uterus: ; 6.5 cm length x 3.4 cm AP x 5.5 cm transverse. Myometrium: There are multiple calcifications seen within the myometrium.. Endometrium: Endometrium appears very thin; double thickness 1 mm. Cervix: Small amount of fluid is noted in the endocervical canal. Ovaries: Right - 2.3 x 1.7 x 1.8 cm Left - 2.4 x 1.9 x 2.2 cm Blood flow is documented in each ovary by duplex Doppler ultrasound. Adnexa: Grossly unremarkable. Free pelvic fluid: None. IMPRESSION: Multiple calcified occasions within the myometrium Endometrium appears thin Small amount of fluid noted within the endocervical canal Report Dictated By: Nat Barnett MD at 06/28/2018 3:33 PM Report E-Signed By: Nat Barnett MD at 06/28/2018 3:38 PM WSN:[email or web address]
== END ==
LOC: US 00:28
PROVIDERS: ATTEND Nurse Practitioner Family
DX: N85.8 Other specified noninflammatory disorders of uterus (principal)
CPT/HCPCS: 76830; 76856

== ENCOUNTER → 2018-07-03 | Outpatient (CLI) | payer MEDICARE, OTHER ==
[2016-12-14 13:11] VITALS: BMI 30.8
--- NOTE | 2018-07-03 10:17 | RADIOLOGY IMAGING REPORT ---
FACILITY: [facility] PATIENT NAME: Dori Reddy : 1945 MR: [id number] V: [id number] EXAM DATE: ORDERING PHYSICIAN: ELICEO GONG TECHNOLOGIST: Location: [facility] Patient: Dori Reddy : 1945 Visit/Account:[id number] Date of Sevice: 07/03/2018 Right upper quadrant ultrasound HISTORY: Right upper quadrant pain COMPARISON: CT scan 07/27/2016 TECHNIQUE: Aponte scale, color and Duplex imaging of the right upper quadrant was performed. FINDINGS: Gallbladder: Unremarkable; no stones or sludge.. The gallbladder wall measures 2 mm. There was no so nographic Andrade sign. Common duct: Normal, 3 mm diameter. Liver: The liver measures 13.3 cm. Normal in size and echotexture. No focal liver lesions are see n. Main portal vein is patent with hepatopedal flow. Liver surface is smooth. Pancreas: Partially obscured by bowel, visualized aspects unremarkable. Right Kidney: The right kidney length measures 10.3 cm. The right kidney is normal in size and echo texture. Upper abdominal aorta and IVC: Patent. Ascites: None visualized. IMPRESSION: 1. Unremarkable right upper quadrant ultrasound. Report Dictated By: Corwin Sarah MD at 07/03/2018 10:10 AM Report E-Signed By: Corwin Sarah MD at 07/03/2018 10:14 AM WSN:[email or web address]
== END ==
LOC: US 03:03
PROVIDERS: ATTEND Nurse Practitioner Family
DX: R10.11 Right upper quadrant pain (principal)
CPT/HCPCS: 76705

== ENCOUNTER → 2018-07-07 | Outpatient (CLI) | payer MEDICARE, OTHER ==
[2016-12-14 13:11] VITALS: BMI 30.8
[2018-07-07 16:35] LABS: PLATELET COUNT, AUTOMATED 169 K/uL (150-450)
== END ==
LOC: LAB 16:14
PROVIDERS: ATTEND Nurse Practitioner Family
DX: M25.50 Pain in unspecified joint (principal); M79.1 Myalgia
CPT/HCPCS: 36415; 82040; 82247; 82310; 82374; 82435; 82565; 82947; 84075; 84132; 84155; 84295; 84450; 84460; 84520; 85025; 85651; 86140; 86200; 86430

== ENCOUNTER 2018-07-26 16:35 | Emergency (ER) | payer MEDICARE, OTHER ==
[2016-12-14 13:11] VITALS: Wt 70.8 kg
[~2018-07-26 16:35] MED LIST changes: -METF-421 PO; +METF-452 PO
--- NOTE | 2018-07-26 16:52 | ER Report ---
History and Physical Time Seen By MD: 16:47 Hx. of Stated Complaint: patient having low blood sugar, drank milk, still feeling bad. (STEPHANE STEEN MD) Time Seen By MD: 17:57 (DHARMESH MICHAEL DO) HPI/ROS CHIEF COMPLAINT: Low blood sugar HISTORY OF PRESENT ILLNESS: Patient is a 72-year-old insulin-dependent diabetic who took her insulin today without checking his sugar on arrival to the emergency department she had a sugar of 60 however home she was very lightheaded almost syncopized and the family said that without checking her sugar they gave her a Pop Tart and called 911 patient on arrival here again as a glucose of 60. Patient does not check her sugar on a regular basis prior to admission of her anti-hyperglycemic medications. On arrival here she said she felt a little lightheaded otherwise unremarkable she's been seen numerous times for urinary tract infections patient denies abdominal pain nausea vomiting diarrhea fever chills REVIEW OF SYSTEMS: Respiratory: [No cough, no dyspnea.] Cardiovascular: [No chest pain, no palpitations.] Gastrointestinal: [No vomiting, no abdominal pain.] Musculoskeletal: [No back pain.] Remainder of the 14 system rev: Yes (STEPHANE STEEN MD) HPI/ROS Please see Dr. Steen's note (DHARMESH MICHAEL DO) Allergies: Coded Allergies: hydrochlorothiazide (Verified Allergy, Intermediate, GI DISTRESS, 07/26/18) "THINK IT WAS CAUSING PANCREATITIS" celecoxib (Verified Adverse Reaction, Mild, ITCHING, 07/26/18) duloxetine (Verified Adverse Reaction, Unknown, 07/26/18) dysphagia Home Meds Active Scripts Tramadol Hcl (TRAMADOL HCL) 50 Mg Tablet, 1 TAB PO TID PRN for PAIN, #90 TAB 2 Refills Prov:ELICEO GONG APRN [employer]-C 07/25/18 Citalopram Hydrobromide (CITALOPRAM HBR) 20 Mg Tablet, 1 TAB PO QDAY, #90 TAB 1 Refill Prov:ELICEO GONG APRN [employer]-C 04/28/18 Metoprolol Succinate (METOPROLOL SUCCINATE) 100 Mg Tab.er.24h, 1 TAB PO BID, #180 TAB 1 Refill Prov:ELICEO GONG APRN [employer]-C 04/28/18 Insulin NPH Human Isophane (Humulin N) 100 Unit/Ml Vial, 20-40 UNITS SQ BID, #6 VIAL 1 Refill 40 units every morning and 20 units every evening. Prov:ELICEO GONG MOHSEN [employer]-C 04/28/18 Atorvastatin Calcium (ATORVASTATIN CALCIUM) 20 Mg Tablet, 1 TAB PO QDAY, #90 TAB 1 Refill Prov:ELICEO GONG MOHSEN [employer]-C 04/28/18 Metformin Hcl (METFORMIN HCL) 1,000 Mg Tablet, 1 TAB PO BID, #180 TAB 1 Refill Prov:ELICEO GONG MOHSEN [employer]-C 04/28/18 Oxygen (OXYGEN) Inha, 2 L INH Continuous, #2 L Prov:ELICEO GONG MOHSEN [employer] 06/07/17 [Second Hand Smoke] No Conflict Check Prov:YOUSUFNehemiasLUIS ALFREDOELICEOBESSIE CONNOLLY [employer] 06/07/17 Meclizine Hcl (MECLIZINE HCL) 25 Mg Tablet, 1 TAB PO BID PRN for DIZZINESS, #14 TAB 5 Refills Prov:ELICEO GONG APRN [employer]-C 06/07/17 Reported Medications Aspirin (ASPIR 81) 81 Mg Tablet.dr, 1 TAB PO QDAY, TAB 12/14/16 Cholecalciferol (Vitamin D3) (VITAMIN D3) 1,000 Unit Tablet, 1 CAP PO QDAY, TAB 08/05/16 Reviewed Nurses Notes: Yes Old Medical Records Reviewed: Yes (STEPHANE STEEN MD) Hx Smoking: No Smoking Status: Never Smoker Exposure to Second Hand Smoke?: Yes (daughter who lives with her smokes) Hx Substance Use Disorder: No Hx Alcohol Use: Yes (STEPHANE STEEN MD) Constitutional Vital Sign - Last 24 Hours 07/26/18 07/26/18 07/26/18 07/26/18 16:40 16:50 17:00 17:05 Temp 98.0 Pulse 66 59 63 Resp 15 22 21 B/P (MAP) 122/88 127/63 (84) Pulse Ox 93 92 90 O2 Delivery Room Air 07/26/18 07/26/18 07/26/18 17:20 17:35 17:50 Pulse 66 74 69 Resp 7 Pulse Ox 92 85 92 (DHARMESH MICHAEL DO) Physical Exam General Appearance: The patient is alert, has no immediate need for airway protection and no current signs of toxicity. [ ] Eyes: Pupils equal and round no injection. Respiratory: Chest is non tender, lungs are clear to auscultation. Cardiac: regular rate and rhythm [ ] Gastrointestinal: Abdomen is soft and non tender, no masses, bowel sounds normal. Musculoskeletal: Neck: Neck is supple and non tender. Extremities have full range of motion and are non tender. Skin: No rashes or lesions. [ ] DIFFERENTIAL DIAGNOSIS: After history and physical exam differential diagnosis was considered for hypoglycemia secondary to misuse of insulin urinary tract infection DKA (STEPHANE STEEN MD) Physical Exam Please see Dr. Hopper (DHARMESH MICHAEL DO) Medical Decision Making Data Points Result Diagram: 07/26/18 1720 07/26/18 1720 Laboratory Hematology Test 07/26/18 17:20 07/26/18 17:30 Red Blood Count 4.51 M/uL (4.17-5.56) Mean Corpuscular Volume 88.7 fL (80.0-96.0) Mean Corpuscular Hemoglobin 29.9 pg (26.0-33.0) Mean Corpuscular Hemoglobin Concent 33.7 g/dL (32.0-36.0) Red Cell Distribution Width 14.9 % (11.5-14.5) Mean Platelet Volume 8.0 fL (7.2-11.1) Neutrophils (%) (Auto) 62.0 % (39.4-72.5) Lymphocytes (%) (Auto) 22.9 % (17.6-49.6) Monocytes (%) (Auto) 8.7 % (4.1-12.4) Eosinophils (%) (Auto) 5.5 % (0.4-6.7) Basophils (%) (Auto) 0.9 % (0.3-1.4) Nucleated RBC Relative Count (auto) 0.1 /100WBC Neutrophils # (Auto) 4.4 K/uL (2.0-7.4) Lymphocytes # (Auto) 1.6 K/uL (1.3-3.6) Monocytes # (Auto) 0.6 K/uL (0.3-1.0) Eosinophils # (Auto) 0.4 K/uL (0.0-0.5) Basophils # (Auto) 0.1 K/uL (0.0-0.1) Nucleated RBC Absolute Count (auto) 0.01 K/uL Sodium Level 137 mmol/L (137-145) Potassium Level 3.8 mmol/L (3.5-5.0) Chloride Level 101 mmol/L (98-107) Carbon Dioxide Level 24 mmol/L (22-31) Blood Urea Nitrogen 14 mg/dl (7-18) Creatinine 0.90 mg/dl (0.52-1.04) Glomerular Filtration Rate Calc > 60.0 Random Glucose 118 mg/dl (75-110) Calcium Level 9.0 mg/dl (8.4-10.2) Total Bilirubin 0.4 mg/dl (0.2-1.3) Aspartate Amino Transf (AST/SGOT) 32 U/L (0-35) Alanine Aminotransferase (ALT/SGPT) 39 U/L (0-56) Alkaline Phosphatase 46 U/L (0-126) Total Protein 7.5 g/dl (6.3-8.2) Albumin 4.0 g/dl (3.5-5.0) Urine Color Colorless Urine Clarity Clear Urine pH 5.0 pH (4.8-9.5) Urine Specific [place] 1.003 Urine Protein Negative mg/dL (NEGATIVE) Urine Glucose (UA) Negative mg/dL (NEGATIVE) Urine Ketones Negative mg/dL (NEGATIVE) Urine Blood Negative (NEGATIVE) Urine Nitrite Negative (NEGATIVE) Urine Bilirubin Negative (NEGATIVE) Urine Urobilinogen Negative mg/dL (0.2-1.9) Urine Leukocyte Esterase Negative (NEGATIVE) Urine RBC None /HPF (0-2/HPF) Urine WBC 2 /HPF (0-5/HPF) Urine Squamous Epithelial Cells None /LPF (NONE-FEW) Urine Bacteria Negative /HPF (NONE-FEW) Urine Mucus None /HPF (NONE-FEW) Chemistry Test 07/26/18 17:20 07/26/18 17:30 White Blood Count 7.1 k/uL (4.5-11.0) Red Blood Count 4.51 M/uL (4.17-5.56) Hemoglobin 13.5 g/dL (12.0-16.0) Hematocrit 40.0 % (34.0-47.0) Mean Corpuscular Volume 88.7 fL (80.0-96.0) Mean Corpuscular Hemoglobin 29.9 pg (26.0-33.0) Mean Corpuscular Hemoglobin Concent 33.7 g/dL (32.0-36.0) Red Cell Distribution Width 14.9 % (11.5-14.5) Platelet Count 163 K/uL (150-450) Mean Platelet Volume 8.0 fL (7.2-11.1) Neutrophils (%) (Auto) 62.0 % (39.4-72.5) Lymphocytes (%) (Auto) 22.9 % (17.6-49.6) Monocytes (%) (Auto) 8.7 % (4.1-12.4) Eosinophils (%) (Auto) 5.5 % (0.4-6.7) Basophils (%) (Auto) 0.9 % (0.3-1.4) Nucleated RBC Relative Count (auto) 0.1 /100WBC Neutrophils # (Auto) 4.4 K/uL (2.0-7.4) Lymphocytes # (Auto) 1.6 K/uL (1.3-3.6) Monocytes # (Auto) 0.6 K/uL (0.3-1.0) Eosinophils # (Auto) 0.4 K/uL (0.0-0.5) Basophils # (Auto) 0.1 K/uL (0.0-0.1) Nucleated RBC Absolute Count (auto) 0.01 K/uL Glomerular Filtration Rate Calc > 60.0 Calcium Level 9.0 mg/dl (8.4-10.2) Total Bilirubin 0.4 mg/dl (0.2-1.3) Aspartate Amino Transf (AST/SGOT) 32 U/L (0-35) Alanine Aminotransferase (ALT/SGPT) 39 U/L (0-56) Alkaline Phosphatase 46 U/L (0-126) Total Protein 7.5 g/dl (6.3-8.2) Albumin 4.0 g/dl (3.5-5.0) Urine Color Colorless Urine Clarity Clear Urine pH 5.0 pH (4.8-9.5) Urine Specific [place] 1.003 Urine Protein Negative mg/dL (NEGATIVE) Urine Glucose (UA) Negative mg/dL (NEGATIVE) Urine Ketones Negative mg/dL (NEGATIVE) Urine Blood Negative (NEGATIVE) Urine Nitrite Negative (NEGATIVE) Urine Bilirubin Negative (NEGATIVE) Urine Urobilinogen Negative mg/dL (0.2-1.9) Urine Leukocyte Esterase Negative (NEGATIVE) Urine RBC None /HPF (0-2/HPF) Urine WBC 2 /HPF (0-5/HPF) Urine Squamous Epithelial Cells None /LPF (NONE-FEW) Urine Bacteria Negative /HPF (NONE-FEW) Urine Mucus None /HPF (NONE-FEW) Urinalysis Test 07/26/18 17:30 Urine Color Colorless Urine Clarity Clear Urine pH 5.0 pH (4.8-9.5) Urine Specific [place] 1.003 Urine Protein Negative mg/dL (NEGATIVE) Urine Glucose (UA) Negative mg/dL (NEGATIVE) Urine Ketones Negative mg/dL (NEGATIVE) Urine Blood Negative (NEGATIVE) Urine Nitrite Negative (NEGATIVE) Urine Bilirubin Negative (NEGATIVE) Urine Urobilinogen Negative mg/dL (0.2-1.9) Urine Leukocyte Esterase Negative (NEGATIVE) Urine RBC None /HPF (0-2/HPF) Urine WBC 2 /HPF (0-5/HPF) Urine Squamous Epithelial Cells None /LPF (NONE-FEW) Urine Bacteria Negative /HPF (NONE-FEW) Urine Mucus None /HPF (NONE-FEW) (DHARMESH MICHAEL DO) ED Course/Re-evaluation ED Course I took over care of this patient from Dr. Steen. Urinalysis came back noninfectious. Patient was discharged in stable condition with a stable glucose. Patient was advised to follow-up with her PCP and to check her glucose levels prior to administration of insulin as to avoid deleterious effects of insulin and hypoglycemia secondary to administration of insulin. Decision to Disposition Date: Jul 26, 2018 Decision to Disposition Time: 17:58 (DHARMESH MICHAEL DO) Depart Departure Latest Vital Signs Vital Signs Date Time Temp Pulse Resp B/P (MAP) Pulse Ox O2 Delivery O2 Flow Rate FiO2 07/26/18 17:50 69 92 07/26/18 17:20 7 07/26/18 17:00 127/63 (84) 07/26/18 16:40 98.0 Room Air (DHARMESH MICHAEL DO) Impression: Primary Impression: Diabetes Condition: Improved Disposition: HOME OR SELF-CARE Referrals: ELICEO GONG APRN-Derrell (PCP) Patient Instructions: Type 2 Diabetes in Adults (ED) Additional Instructions: Please follow-up with her family doctor in one week. Please check your blood glucose before administering insulin. Please return promptly if develop fevers, high glucose levels, dizziness, weakness, chest pain or shortness breath STEPHANE STEEN MD Jul 26, 2018 16:52 DHARMESH MICHAEL DO Jul 26, 2018 18:00
[2018-07-26 17:26] LABS: PLATELET COUNT, AUTOMATED 163 K/uL (150-450)
[2018-07-26 18:00] VITALS: BP 130/64
[2018-07-28] MEDS ORDERED: CITA-145 PO (16:08)
[2018-07-28] MEDS ORDERED: ATOR20TA65 PO (16:08)
[2018-07-28] MEDS ORDERED: METF-452 PO (16:08)
[2018-07-28] MEDS ORDERED: NPH,100V2 SQ (16:08)
== END 2018-07-26 18:20 | disposition home or self-care (01) ==
LOC: ER 16:47
DX: E11.649 Type 2 diabetes mellitus with hypoglycemia without coma (principal)
CPT/HCPCS: 36416; 81001; 82948; 85025; 99282; A4353; 82040; 82247; 82310; 82374; 82435; 82565; 82947; 84075; 84132; 84155; 84295; 84450; 84460; 84520

== ENCOUNTER 2018-08-28 17:20 | Emergency (ER) | payer MEDICARE, OTHER ==
[2016-12-14 13:11] VITALS: BMI 30.8
[2018-08-28] MEDS ORDERED: NS(*) 0.9% 1000 ML BAG 1,000 ML IV ONE (17:30)
--- NOTE | 2018-08-28 17:36 | ER Report ---
History and Physical Time Seen By MD: 17:36 Hx. of Stated Complaint: Pleuritic chest pain HPI/ROS 72-year-old female sent from her primary care physician's office had been seen f or pleuritic chest pain workup was negative except for an elevated d-dimer patient was called from home to come into have a CTA of the chest Allergies: Coded Allergies: hydrochlorothiazide (Verified Allergy, Intermediate, GI DISTRESS, 07/26/18) "THINK IT WAS CAUSING PANCREATITIS" celecoxib (Verified Adverse Reaction, Mild, ITCHING, 07/26/18) duloxetine (Verified Adverse Reaction, Unknown, 07/26/18) dysphagia Home Meds Active Scripts Citalopram Hydrobromide (CITALOPRAM HBR) 20 Mg Tablet, 1 TAB PO QDAY, #90 TAB 1 Refill Prov:ELICEO GONG APRN 07/28/18 Insulin NPH Human Isophane (Humulin N) 100 Unit/Ml Vial, 20-40 UNITS SQ BID, #6 VIAL 1 Refill 40 units every morning and 20 units every evening. Prov:ELICEO GONG APRN 07/28/18 Atorvastatin Calcium (ATORVASTATIN CALCIUM) 20 Mg Tablet, 1 TAB PO QDAY, #90 TAB 1 Refill Prov:ELICEO GONG APRN 07/28/18 Metformin Hcl (METFORMIN HCL) 1,000 Mg Tablet, 1 TAB PO BID, #180 TAB 1 Refill Prov:ELICEO GONG APRN 07/28/18 Tramadol Hcl (TRAMADOL HCL) 50 Mg Tablet, 1 TAB PO TID PRN for PAIN, #90 TAB 2 Refills Prov:ELICEO GONG APRN 07/25/18 Metoprolol Succinate (METOPROLOL SUCCINATE) 100 Mg Tab.er.24h, 1 TAB PO BID, #180 TAB 1 Refill Prov:ELICEO GONG APRN 04/28/18 Oxygen (OXYGEN) Inha, 2 L INH Continuous, #2 L Prov:ELICEO GONG APRN 06/07/17 [Second Hand Smoke] No Conflict Check Prov:ELICEO GONG APRN 06/07/17 Meclizine Hcl (MECLIZINE HCL) 25 Mg Tablet, 1 TAB PO BID PRN for DIZZINESS, #14 TAB 5 Refills Prov:ELICEO GONG MOHSEN FURNITURE SANDER-C 06/07/17 Reported Medications Aspirin (ASPIR 81) 81 Mg Tablet.dr, 1 TAB PO QDAY, TAB 12/14/16 Cholecalciferol (Vitamin D3) (VITAMIN D3) 1,000 Unit Tablet, 1 CAP PO QDAY, TAB 08/05/16 Past Medical/Surgical History History of cataracts, hyperlipidemia, COPD, CPAP dependent, Reviewed Nurses Notes: Yes Old Medical Records Reviewed: Yes Hx Smoking: No Smoking Status: Never Smoker Exposure to Second Hand Smoke?: Yes (daughter who lives with her smokes) Hx Substance Use Disorder: No Hx Alcohol Use: Yes Constitutional Vital Sign - Last 24 Hours 08/28/18 17:50 Temp 98.4 Pulse 54 Resp 20 Pulse Ox 94 O2 Delivery Room Air Physical Exam 72 year old female alert and oriented nad , hrr lungs decreased bilateral bases , abdomen soft bs x 4 Medical Decision Making EKG/Imaging Imaging FACILITY: [facility] PATIENT NAME: Dori Reddy : 1945 MR: [id number] V: [id number] EXAM DATE: ORDERING PHYSICIAN: BIJAN CARSON TECHNOLOGIST: Location: [facility] Patient: Dori Reddy : 1945 Visit/Account:[id number] Date of Sevice: 08/28/2018 EXAMINATION: CT CHEST PULMONARY ANGIOGRAM COMPARISON: Chest x-ray same day. Chest CT 06/07/2017. HISTORY: Elevated d-dimer. Shortness of breath. PROCEDURE: Pulmonary arterial phase imaging of the chest with 75 mL intravenous Isovue 370. Reconstruction of the source data set includes multiplanar 2D in the sagittal and coronal planes, and 3D reconstructed coronal slab MIP series. One of the following dose optimization techniques was utilized in the performance of this exam: Automated exposure control; adjustment of the mA and/or kV according to the patient's size; or use of an iterative reconstruction technique. Specific details can be referenced in the facility's radiology CT exam operational policy. FINDINGS: Pulmonary vasculature: There is good contrast opacification of the pulmonary arterial system. No pulmonary embolism. Main pulmonary artery size is normal. Cardiac and mediastinum: Cardiac chamber size is normal. No pericardial effusion. Mild coronary calcifications. No thoracic aortic aneurysm. Lymph nodes: Right axillary surgical clips. No lymph node enlargement. Lungs and pleura: Elevated right hemidiaphragm is unchanged. Mild peripheral fibrosis as before. Increased atelectasis. No new or enlarging consolidation or nodule. No pneumothorax, edema, or effusion. Airways: Negative. Upper abdomen: No acute findings. Osseous structures: Multilevel thoracic spine mild degenerative change. No acute findings. Other: Right breast surgical change as before. IMPRESSION: 1. No pulmonary embolism or evidence of acute cardiopulmonary disease. 2. Mild pulmonary fibrosis. 3. Mild coronary calcifications. Report Dictated By: Henrique Rice MD at 08/28/2018 6:17 PM Report E-Signed By: Henrique Rice MD at 08/28/2018 6:27 PM WSN:[id number] Course/Re-evaluation Clinical Indication for ER IV: Hydration ED Course CTA was negative for PE will have patient follow-up closely with her primary care physician she is in no acute distress currently feels good going home has no further questions Decision to Disposition Date: Aug 28, 2018 Decision to Disposition Time: 18:47 Depart Departure Latest Vital Signs Vital Signs Date Time Temp Pulse Resp B/P (MAP) Pulse Ox O2 Delivery O2 Flow Rate FiO2 08/28/18 17:50 98.4 54 20 94 Room Air Impression: Primary Impression: Pleuritic chest pain Condition: Improved Disposition: HOME OR SELF-CARE Referrals: ELICEO GONG APRN FURNITURE SANDER-C (PCP) 1 Day Patient Instructions: Chest Wall Pain (GEN) Additional Instructions: call your doctor for follow up BIJAN CARSON APRN-C Aug 28, 2018 17:36
[2018-08-28] MEDS ORDERED: NS(*) 0.9% 50 ML BAG 50 ML ONE (17:41)
[2018-08-28] MEDS ORDERED: IOPAMIDOL 76% 75 ML INFUS BTL 75 ML ONE (17:41)
--- NOTE | 2018-08-28 18:31 | RADIOLOGY IMAGING REPORT ---
FACILITY: [facility] - [place] PATIENT NAME: Dori Reddy : 1945 MR: [id number] V: [id number] EXAM DATE: ORDERING PHYSICIAN: BIJAN CARSON TECHNOLOGIST: Location: [facility] [place] Patient: Dori Reddy : 1945 Visit/Account:[id number] Date of Sevice: 08/28/2018 EXAMINATION: CT CHEST PULMONARY ANGIOGRAM COMPARISON: Chest x-ray same day. Chest CT 06/07/2017. HISTORY: Elevated d-dimer. Shortness of breath. PROCEDURE: Pulmonary arterial phase imaging of the chest with 75 mL intravenous Isovue 370. Reconstru ction of the source data set includes multiplanar 2D in the sagittal and coronal planes, and 3D recon structed coronal slab MIP series. One of the following dose optimization techniques was utilized in the performance of this exam: Autom ated exposure control; adjustment of the mA and/or kV according to the patient's size; or use of an i terative reconstruction technique. Specific details can be referenced in the facility's radiology C T exam operational policy. FINDINGS: Pulmonary vasculature: There is good contrast opacification of the pulmonary arterial system. No pul monary embolism. Main pulmonary artery size is normal. Cardiac and mediastinum: Cardiac chamber size is normal. No pericardial effusion. Mild coronary brayan cifications. No thoracic aortic aneurysm. Lymph nodes: Right axillary surgical clips. No lymph node enlargement. Lungs and pleura: Elevated right hemidiaphragm is unchanged. Mild peripheral fibrosis as before. In creased atelectasis. No new or enlarging consolidation or nodule. No pneumothorax, edema, or effusi on. Airways: Negative. Upper abdomen: No acute findings. Osseous structures: Multilevel thoracic spine mild degenerative change. No acute findings. Other: Right breast surgical change as before. IMPRESSION: 1. No pulmonary embolism or evidence of acute cardiopulmonary disease. 2. Mild pulmonary fibrosis. 3. Mild coronary calcifications. Report Dictated By: Henrique Rice MD at 08/28/2018 6:17 PM Report E-Signed By: Henrique Rice MD at 08/28/2018 6:27 PM WSN:[email or web address]
[2018-08-29] MEDS ORDERED: AMOX-559 PO ×2 (08:16→14:12)
== END 2018-08-28 19:00 | disposition home or self-care (01) ==
LOC: ER 17:45
DX: R09.1 Pleurisy (principal)
CPT/HCPCS: 71275; 96360; 99284; J7030; J7050; Q9967

== ENCOUNTER → 2018-08-28 | Outpatient (CLI) | payer MEDICARE, OTHER ==
[2016-12-14 13:11] VITALS: BMI 30.8
[~2018-08-28] MED LIST changes: +FLU180SY11 IM; -HYDR-4309 PO; +HYDR-653 PO
[2018-08-28 16:05] LABS: PLATELET COUNT, AUTOMATED 187 K/uL (150-450)
--- NOTE | 2018-08-28 16:29 | RADIOLOGY IMAGING REPORT ---
FACILITY: [facility] PATIENT NAME: Dori Reddy : 1945 MR: [id number] V: [id number] EXAM DATE: ORDERING PHYSICIAN: ELICEO GONG TECHNOLOGIST: Location: [facility] Patient: Dori Reddy : 1945 Visit/Account:[id number] Date of Sevice: 08/28/2018 Examination: CHEST PA AND LAT Comparison: 06/10/2018 and earlier. History: hypoxia Findings: Cardiac and hilar contour size is within normal limits and unchanged. Aortic atheroscleros is. Chronic interstitial thickening with no new or enlarging consolidation, nodule, or definite evid ence of acute peribronchial inflammation. No pneumothorax, edema, or effusion. No acute osseous abn ormality. IMPRESSION: Unchanged chest with no evidence of acute cardiopulmonary disease. Report Dictated By: Henrique Rice MD at 08/28/2018 4:24 PM Report E-Signed By: Henrique Rice MD at 08/28/2018 4:25 PM WSN:[email or web address]
== END ==
LOC: LAB 15:32
PROVIDERS: ATTEND Nurse Practitioner Family
DX: R09.02 Hypoxemia (principal)
CPT/HCPCS: 36415; 71046; 82040; 82247; 82310; 82374; 82435; 82565; 82947; 84075; 84132; 84155; 84295; 84450; 84460; 84520; 85025; 85379

== ENCOUNTER 2018-09-13 06:05 | Emergency (ER) | payer MEDICARE, OTHER ==
[2016-12-14 13:11] VITALS: Wt 71.2 kg
--- NOTE | 2018-09-13 06:11 | ER Report ---
History and Physical Time Seen By MD: 06:11 (KENNY CHRISTIANSON DO) Time Seen By MD: 06:54 (DHARMESH MICHAEL DO) HPI/ROS CHIEF COMPLAINT: Urinary burning HISTORY OF PRESENT ILLNESS: 72-year-old female, type II diabetic, insulin required notes onset of dysuria since 7 PM last night. She thinks she has urinary tract infection. She notes no fever, chills. She notes no back pain. She notes no vomiting or nausea. She states she is prone to urinary tract infections. REVIEW OF SYSTEMS: Respiratory: No cough, no dyspnea. Cardiovascular: No chest pain, no palpitations. Gastrointestinal: No vomiting, no abdominal pain. Musculoskeletal: No back pain. (KENNY CHRISTIANSON DO) HPI/ROS See Dr. Christianson's note. (DHARMESH MICHALE DO) Allergies: Coded Allergies: hydrochlorothiazide (Verified Allergy, Intermediate, GI DISTRESS, 07/26/18) "THINK IT WAS CAUSING PANCREATITIS" celecoxib (Verified Adverse Reaction, Mild, ITCHING, 07/26/18) duloxetine (Verified Adverse Reaction, Unknown, 07/26/18) dysphagia Home Meds Active Scripts Citalopram Hydrobromide (CITALOPRAM HBR) 20 Mg Tablet, 1 TAB PO QDAY, #90 TAB 1 Refill Prov:ELICEO GONG APRN-C 07/28/18 Insulin NPH Human Isophane (Humulin N) 100 Unit/Ml Vial, 20-40 UNITS SQ BID, #6 VIAL 1 Refill 40 units every morning and 20 units every evening. Prov:ELICEO GONG APRN-[place] 07/28/18 Atorvastatin Calcium (ATORVASTATIN CALCIUM) 20 Mg Tablet, 1 TAB PO QDAY, #90 TAB 1 Refill Prov:ELICEO GONG APRN-C 07/28/18 Metformin Hcl (METFORMIN HCL) 1,000 Mg Tablet, 1 TAB PO BID, #180 TAB 1 Refill Prov:ELICEO GONG APRN-C 07/28/18 Tramadol Hcl (TRAMADOL HCL) 50 Mg Tablet, 1 TAB PO TID PRN for PAIN, #90 TAB 2 Refills Prov:ELICEO GONG APRN-C 07/25/18 Metoprolol Succinate (METOPROLOL SUCCINATE) 100 Mg Tab.er.24h, 1 TAB PO BID, #180 TAB 1 Refill Prov:ELICEO GONG APRRichy LRP-C 04/28/18 Oxygen (OXYGEN) Inha, 2 L INH Continuous, #2 L Prov:ELICEO GONG APRN [employer] WORKER-C 06/07/17 [Second Hand Smoke] No Conflict Check Prov:ELICEO GONG MOHSEN LRP-C 06/07/17 Meclizine Hcl (MECLIZINE HCL) 25 Mg Tablet, 1 TAB PO BID PRN for DIZZINESS, #14 TAB 5 Refills Prov:ELICEO GONG MOHSEN LRP-C 06/07/17 Reported Medications Aspirin (ASPIR 81) 81 Mg Tablet.dr, 1 TAB PO QDAY, TAB 12/14/16 Cholecalciferol (Vitamin D3) (VITAMIN D3) 1,000 Unit Tablet, 1 CAP PO QDAY, TAB 08/05/16 Discontinued Scripts Amoxicillin/Pot Clav 875-125 Mg Tab (AUGMENTIN 875-125 TABLET) 1 Each Tablet, 1 TAB PO Q12H, #20 TAB 0 Refills Prov:ELICEO GONG MOHSEN LRP-C 08/29/18 Past Medical/Surgical History Past Medical History HEENT: Reports hx of: vision deficit (no longer drives - Seeing [facility] for eye care) Cardiovascular: Reports hx of: hyperlipidemia hypertension Respiratory: Reports hx of: COPD pneumonia (12/24) sleep apnea Musculoskeletal: Reports hx of: osteoarthritis Psychiatric: Reports hx of: depression Endocrine: Reports hx of: diabetes type 2 2 Hematology/oncology: Reprots hx of: breast cancer (R breast mod diff invasive ductal ca 07/23) Infectious disease: Reports hx of: other infectious disease (influenza A 11/23) Past Surgical History Breast: Reports hx of: breast biopsy (07/23 R mod diff invasive ductal ca) lumpectomy (2015) (KENNY CHRISTIANSON DO) Reviewed Nurses Notes: Yes Old Medical Records Reviewed: Yes (KENNY CHRISTIANSON DO) Hx Smoking: No Smoking Status: Never Smoker Exposure to Second Hand Smoke?: Yes (daughter who lives with her smokes) Hx Substance Use Disorder: No Hx Alcohol Use: Yes (KENNY CHRISTIANSON DO) Constitutional Vital Sign - Last 24 Hours 09/13/18 06:12 Temp 97.9 Pulse 58 Resp 18 B/P (MAP) 153/80 Pulse Ox 91 O2 Delivery Room Air (DHARMESH MICHAEL [facility]) Physical Exam General Appearance: The patient is alert, has no immediate need for airway protection and no current signs of toxicity. Eyes: Pupils equal and round no injection. Respiratory: Chest is non tender, lungs are clear to auscultation. Cardiac: regular rate and rhythm Gastrointestinal: Abdomen is soft and non tender, no masses, bowel sounds normal. Musculoskeletal: Neck: Neck is supple and non tender. Extremities have full range of motion and are non tender. Skin: No rashes or lesions. DIFFERENTIAL DIAGNOSIS: After history and physical exam differential diagnosis was considered for abdominal pain including but not limited to appendicitis, cholecystitis, gastritis and urinary tract infection. (KENNY CHRISTIANSON DO) Physical Exam See Dr. Christianson's note (DHARMESH MICHAEL ) Medical Decision Making Data Points Laboratory Hematology Test 09/13/18 06:51 Urine Color Yellow Urine Clarity Slightly-cloudy Urine pH 6.0 pH (4.8-9.5) Urine Specific [place] 1.009 Urine Protein 30 mg/dL (NEGATIVE) Urine Glucose (UA) Negative mg/dL (NEGATIVE) Urine Ketones Negative mg/dL (NEGATIVE) Urine Blood Large (NEGATIVE) Urine Nitrite Negative (NEGATIVE) Urine Bilirubin Negative (NEGATIVE) Urine Urobilinogen Negative mg/dL (0.2-1.9) Urine Leukocyte Esterase Moderate (NEGATIVE) Urine RBC 202 /HPF (0-2/HPF) Urine WBC 129 /HPF (0-5/HPF) Urine Squamous Epithelial Cells Many /LPF (</=FEW) Urine Transitional Epithelial Cells Moderate /LPF (NONE-FEW) Urine Bacteria Few /HPF (NONE-FEW) Urine Mucus None /HPF (NONE-FEW) Chemistry Test 09/13/18 06:51 Urine Color Yellow Urine Clarity Slightly-cloudy Urine pH 6.0 pH (4.8-9.5) Urine Specific [place] 1.009 Urine Protein 30 mg/dL (NEGATIVE) Urine Glucose (UA) Negative mg/dL (NEGATIVE) Urine Ketones Negative mg/dL (NEGATIVE) Urine Blood Large (NEGATIVE) Urine Nitrite Negative (NEGATIVE) Urine Bilirubin Negative (NEGATIVE) Urine Urobilinogen Negative mg/dL (0.2-1.9) Urine Leukocyte Esterase Moderate (NEGATIVE) Urine RBC 202 /HPF (0-2/HPF) Urine WBC 129 /HPF (0-5/HPF) Urine Squamous Epithelial Cells Many /LPF (</=FEW) Urine Transitional Epithelial Cells Moderate /LPF (NONE-FEW) Urine Bacteria Few /HPF (NONE-FEW) Urine Mucus None /HPF (NONE-FEW) Urinalysis Test 09/13/18 06:51 Urine Color Yellow Urine Clarity Slightly-cloudy Urine pH 6.0 pH (4.8-9.5) Urine Specific [place] 1.009 Urine Protein 30 mg/dL (NEGATIVE) Urine Glucose (UA) Negative mg/dL (NEGATIVE) Urine Ketones Negative mg/dL (NEGATIVE) Urine Blood Large (NEGATIVE) Urine Nitrite Negative (NEGATIVE) Urine Bilirubin Negative (NEGATIVE) Urine Urobilinogen Negative mg/dL (0.2-1.9) Urine Leukocyte Esterase Moderate (NEGATIVE) Urine RBC 202 /HPF (0-2/HPF) Urine WBC 129 /HPF (0-5/HPF) Urine Squamous Epithelial Cells Many /LPF (</=FEW) Urine Transitional Epithelial Cells Moderate /LPF (NONE-FEW) Urine Bacteria Few /HPF (NONE-FEW) Urine Mucus None /HPF (NONE-FEW) (DHARMESH MICHAEL S DO) ED Course/Re-evaluation ED Course I took over this care from Dr. Christianson who was on police shift commander. Patient has a history of recurrent urinary tract infections and noted dysuria starting last night at approximately 1900 hrs. Patient was hemodynamically stable, afebrile in no acute distress at time of evaluation. Patient was found to have a urinary tract infection. Patient was placed on Macrobid for coverage. Patient advised to follow up with PCP in one week. Decision to Disposition Date: Sep 13, 2018 Decision to Disposition Time: 07:11 (DHARMESH MICHAEL DO) Depart Departure Latest Vital Signs Vital Signs Date Time Temp Pulse Resp B/P (MAP) Pulse Ox O2 Delivery O2 Flow Rate FiO2 09/13/18 06:12 97.9 58 18 153/80 91 Room Air (DHARMESH MICHAEL S DO) Impression: Primary Impression: Urinary tract infection Condition: Improved Disposition: HOME OR SELF-CARE Referrals: ELICEO GONG APRNP-C (PCP) Patient Instructions: Urinary Tract Infection in Women (ED) Additional Instructions: Please take one tablet of Macrobid twice daily for 5 days. Please return promptly if he has no resolution or improvement of symptoms, fevers, worsening pain, difficulty urinating, nausea, vomiting. Please drink plenty of water. Please follow-up with your family doctor in the next week for follow-up evaluation and care. KENNY CHRISTIANSON DO Sep 13, 2018 06:11 DHARMESH MICHAEL DO Sep 13, 2018 06:55
[2018-09-13 07:17] VITALS: BP 158/76
== END 2018-09-13 07:20 | disposition home or self-care (01) ==
LOC: ER 06:12
DX: N39.0 Urinary tract infection, site not specified (principal)
CPT/HCPCS: 81001; 87088; 99282

== ENCOUNTER → 2018-09-25 | Outpatient (CLI) | payer MEDICARE, OTHER ==
[2016-12-14 13:11] VITALS: BMI 30.8
[2018-09-25 11:46] LABS: PLATELET COUNT, AUTOMATED 180 K/uL (150-450)
--- NOTE | 2018-09-25 18:55 | RADIOLOGY IMAGING REPORT ---
FACILITY: [facility] PATIENT NAME: Dori Reddy : 1945 MR: [id number] V: [id number] EXAM DATE: ORDERING PHYSICIAN: ELICEO GONG TECHNOLOGIST: Location: [facility] [place] Patient: Dori Reddy : 1945 Visit/Account:[id number] Date of Sevice: 09/25/2018 CTA CHEST WW/O CNTR (PULM ANG) HISTORY: SOB, hypoxia ADDITIONAL HISTORY: None. TECHNIQUE: CTA chest with intravenous contrast attention to pulmonary arteries. Sagittal, coronal a nd slab 3D MIP coronal reconstructed images were also created for further evaluation and interpretati on. One of the following dose optimization techniques was utilized in the performance of this exam: Autom ated exposure control; adjustment of the mA and/or kV according to the patient's size; or use of an i terative reconstruction technique. Specific details can be referenced in the facility's radiology C T exam operational policy. CONTRAST: 75 mL Isovue-370 IV COMPARISON: 08/28/2018 FINDINGS: Heart/vessels: Pulmonary arterial tree well opacified. No evidence of pulmonary embolism. Atheroscle rotic calcifications aorta and its branch vessels including coronary arteries. Mediastinum: Negative. Lymph nodes: Subcarinal soft tissue, not significant change from prior exams dating back to at least 06/2017. No bulky adenopathy. Sequela of right axillary rocío dissection. Lungs/pleura: Decreased lung volumes. Apical intralobular septal thickening. Diffuse peripheral/subp leural reticular nodular septal thickening. Although there is no gross bronchiectasis, there is mild honeycombing at each lung base. The overall appearance of the lungs, however, is not significantly ch anged from most recent prior exam. No acute airspace infiltrate. No pleural fluid. No pneumothorax. C alcified left basilar delivery micronodule consistent with benign granuloma. Visualized upper abdomen: Grossly unremarkable. Bones/soft tissues: Sequela of right lumpectomy with spiculated soft tissue focus upper outer quadra nt right breast and asymmetric thickening of the skin, unchanged from prior exams and likely sequela of prior lumpectomy and radiation therapy. Degenerative changes thoracic spine. No suspicious osseous lesion. IMPRESSION: 1. Technically adequate exam without evidence of pulmonary embolism or other acute intrathoracic proc ess. 2. Pulmonary fibrosis, grossly unchanged. 3. Other chronic and/or benign-appearing changes detailed above including coronary atherosclerosis an d sequela of right breast lumpectomy as well as axillary rocío dissection. Report Dictated By: Kristopher Millre MD at 09/25/2018 6:43 PM Report E-Signed By: Kristopher Miller MD at 09/25/2018 6:51 PM WSN:[id number]
== END ==
LOC: LAB 11:08
PROVIDERS: ATTEND Nurse Practitioner Family
DX: I25.10 Atherosclerotic heart disease of native coronary artery without angina pectoris (principal); R91.8 Other nonspecific abnormal finding of lung field; E11.9 Type 2 diabetes mellitus without complications; R09.02 Hypoxemia; R06.02 Shortness of breath
CPT/HCPCS: 36415; 71275; 82040; 82247; 82310; 82374; 82435; 82565; 82947; 84075; 84132; 84155; 84295; 84450; 84460; 84520; 85025

== ENCOUNTER → 2018-10-26 | Outpatient (CLI) | payer MEDICARE, OTHER ==
[2016-12-14 13:11] VITALS: BMI 30.8
[~2018-10-26] MED LIST changes: +PANT40TA65 PO
== END ==
LOC: RESP 15:00
PROVIDERS: ATTEND Nurse Practitioner Family
DX: Z02.9 Encounter for administrative examinations, unspecified (principal)

== ENCOUNTER → 2018-11-10 | Outpatient (CLI) | payer MEDICARE, OTHER ==
[2016-12-14 13:11] VITALS: BMI 30.8
[~2018-11-10] MED LIST changes: +CYAN1000 IM
== END ==
LOC: LAB 13:35
PROVIDERS: ATTEND Nurse Practitioner Family
DX: R20.2 Paresthesia of skin (principal)
CPT/HCPCS: 36415; 82607; 82728; 82746; 83540; 83550

== ENCOUNTER → 2018-11-15 | Outpatient (CLI) | payer MEDICARE, OTHER ==
[2016-12-14 13:11] VITALS: BMI 30.8
[~2018-11-15] MED LIST changes: +REGADENOSON 0.4 MG/5 ML SYR ONE
--- NOTE | 2018-11-15 19:07 | RADIOLOGY IMAGING REPORT ---
[facility] PATIENT NAME: Dori Reddy : 1945 MR: [id number] V: [id number] EXAM DATE: ORDERING PHYSICIAN: ELICEO GONG TECHNOLOGIST: Location: [facility] - [place] Patient: Dori Reddy : 1945 Visit/Account:[id number] Date of Sevice: 11/15/2018 EXAMINATION: Single isotope SPECT imaging with regadenoson infusion and gated SPECT imaging. DATE OF EXAMINATION: 11/15/2018. DATE OF INTERPRETATION: 11/15/2018. REQUESTING PHYSICIAN: ELICEO GONG. INDICATION: The patient is a 72-year-old female evaluated for chest discomfort. PROCEDURE: After informed consent the patient received an intravenous injection of 11.4 mCi of Tc-99 m sestamibi followed at an appropriate time interval by rest imaging. The patient then subsequently received an intravenous infusion of 0.4 mg of regadenoson per protocol without complication. Resting heart rate was 61 bpm with a peak heart rate of 85 bpm. Blood pressure at rest was 136 / 82 and fol lowing infusion was 161 / 86. Baseline EKG demonstrates normal sinus rhythm with nonspecific T wave abnormality, slow R-wave progression. There were no EKG changes of ischemia following infusion. Sym ptoms were nonspecific. The patient then received an intravenous injection of 28.8 mCi of Tc-99m ses tamibi followed by stress imaging. RAW DATA: Examination of the summed raw data revealed a good quality study. MYOCARDIAL PERFUSION: The tomographic images demonstrate normal myocardial perfusion on resting and stress images. GATED IMAGES: The gated images demonstrate normal LV wall motion and systolic function. IMPRESSION: 1. No ischemic ECG changes with Lexiscan 2. Normal myocardial perfusion scan. 3. Normal LV systolic function; LVEF 89%. 4. Based on the results of this exam, the patient appears to be at low risk for future cardiovascular events. Report Dictated By: Subha Griffith at 11/15/2018 6:55 PM Report E-Signed By: Subha Griffith at 11/15/2018 7:02 PM WSN:[id number]
--- NOTE | 2018-11-16 13:54 | RT STRESS TEST REPORT ---
FACILITY: [facility] - [place] PATIENT NAME: ALEK LOCKETT : [id number] MR: [id number] V: [id number] EXAM DATE: ORDERING PHYSICIAN: ELICEO HODGE TECHNOLOGIST: Gabriella Acquisition Time: 2018-11-15 09:31:45 Total Exercise Time: 00:01:00 Test Indications: Chest Discomfort Medications: see nuclear med sheet Protocol: LEXISCAN Max HR: 085 BPM 58% of Pred: 146 BPM Max BP: 161/086 mmHG Max Work Load: 1.0 METS patient came in for Nuclear medicine / treadmill test but too metoprolol ER 100 mg last night and was switched to LexiScan after getting approval from Eliceo Hodge Imp No EKG changes noted to suggest ischemia Nuclear medicine report to follow Confirmed by GIFTY GARVIN ([id number]) on 11/16/2018 1:53:41 PM Referred By: Overread By: GIFTY GARVIN
== END ==
LOC: NUC 01:17
PROVIDERS: ATTEND Nurse Practitioner Family
DX: R07.9 Chest pain, unspecified (principal)
CPT/HCPCS: 78452; 93017; A9500; J2785

== ENCOUNTER 2018-12-06 06:38 | Emergency (ER) | payer MEDICARE, OTHER ==
[2016-12-14 13:11] VITALS: BMI 30.8
[~2018-12-06 06:38] MED LIST changes: -REGADENOSON 0.4 MG/5 ML SYR ONE
[2018-12-06] MEDS ORDERED: LISI-362 PO (06:52)
[2018-12-06] MEDS ORDERED: GABA-549 PO (07:12)
--- NOTE | 2018-12-06 07:13 | ER Report ---
History and Physical Time Seen By MD: 07:00 Hx. of Stated Complaint: PATIENT STATES THAT SHE HAS LEFT SIDED EAR/JAW PAIN THAT STARTED AROUND 0300; PATIENT STATES SHE TOOK SOME PAIN MEDICATION BUT IT HAS NOT GOTTEN BETTER HPI/ROS CHIEF COMPLAINT: Left jaw pain HISTORY OF PRESENT ILLNESS: 72-year-old female history of fibromyalgia unclear nonspecific chronic neuropathic-type complaints comes emergency Department today saying she woke with some left-sided jaw pain patient has very poor dentition and almost complete absence of teeth says that when she awoke she felt some tenderness to the anterior inferior aspect of her left jaw near the hinge mechanism pain with mastication pain when she opens her mouth fully no fever chills or sweats no difficulty in swallowing no phonation no hearing difficulties no additional complaints noted REVIEW OF SYSTEMS: Respiratory: No cough, no dyspnea. Cardiovascular: No chest pain, no palpitations. Gastrointestinal: No vomiting, no abdominal pain. Musculoskeletal: No back pain. Remainder of the 14 system rev: Yes Allergies: Coded Allergies: hydrochlorothiazide (Verified Allergy, Intermediate, GI DISTRESS, 12/06/18) "THINK IT WAS CAUSING PANCREATITIS" celecoxib (Verified Adverse Reaction, Mild, ITCHING, 12/06/18) duloxetine (Verified Adverse Reaction, Unknown, 12/06/18) dysphagia Home Meds Active Scripts Tramadol Hcl (TRAMADOL HCL) 50 Mg Tablet, 1 TAB PO TID PRN for PAIN, #90 TAB 2 Refills Prov:ELICEO GONG APRN-[place] 11/10/18 Metformin Hcl (METFORMIN HCL) 1,000 Mg Tablet, 1 TAB PO BID, #180 TAB 1 Refill Prov:ELICEO GONG APRN-C 09/25/18 Metoprolol Succinate (METOPROLOL SUCCINATE) 100 Mg Tab.er.24h, 1 TAB PO BID, #180 TAB 1 Refill Prov:ELICEO GONG APRN-C 09/25/18 Citalopram Hydrobromide (CITALOPRAM HBR) 20 Mg Tablet, 1 TAB PO QDAY, #90 TAB 1 Refill Prov:ELICEO GONG APRN-C 07/28/18 Insulin NPH Human Isophane (Humulin N) 100 Unit/Ml Vial, 20-40 UNITS SQ BID, #6 VIAL 1 Refill 40 units every morning and 20 units every evening. Prov:ELICEO GONG [facility]- 07/28/18 Oxygen (OXYGEN) Inha, 2 L INH Continuous, #2 L Prov:YOUSUFELICEO HARVEY [facility] 06/07/17 Meclizine Hcl (MECLIZINE HCL) 25 Mg Tablet, 1 TAB PO BID PRN for DIZZINESS, #14 TAB 5 Refills Prov:BELTRANELICEO [facility] 06/07/17 Reported Medications Lisinopril (LISINOPRIL) 10 Mg Tablet, 10 MG PO QDAY, TAB 12/06/18 Aspirin (ASPIR 81) 81 Mg Tablet.dr, 1 TAB PO QDAY, TAB 12/14/16 Cholecalciferol (Vitamin D3) (VITAMIN D3) 1,000 Unit Tablet, 1 CAP PO QDAY, TAB 08/05/16 Discontinued Scripts Pantoprazole Sodium (PANTOPRAZOLE SODIUM) 40 Mg Tablet.dr, 1 TAB PO QDAY, #30 TAB.SR 0 Refills Prov:YOUSUFELICEO ALMEIDA [facility]- 10/27/18 Cyclobenzaprine Hcl (CYCLOBENZAPRINE HCL) 10 Mg Tablet, 5 MG PO TID PRN for MUSCLE SPASMS, #9 TAB Prov:RUY [facility] 10/26/18 [Second Hand Smoke] No Conflict Check Prov:ELICEO GONG [facility] 06/07/17 Reviewed Nurses Notes: Yes Old Medical Records Reviewed: Yes Hx Smoking: No Smoking Status: Never Smoker Exposure to Second Hand Smoke?: Yes (daughter who lives with her smokes) Hx Substance Use Disorder: No Hx Alcohol Use: Yes (RARE) Constitutional Vital Sign - Last 24 Hours 12/06/18 06:41 Temp 98.8 Pulse 61 Resp 19 B/P (MAP) 157/85 Pulse Ox 99 O2 Delivery Nasal Cannula Physical Exam General appearance: [Alert no distress.] Respiratory: Chest is non tender, lungs are clear to auscultation. Cardiac: Regular rate and rhythm [ ] Jaw facial examination patient has no obvious loss of neurological function she has extremely poor dentition and her she has pain with palpation to the anterior aspect of the TMJ joint she has pain with full opening of the mouth this is all consistent with probable TMJ no signs of infection no signs of abscess no dysphonia no dysphagia uvular deviation is not noted no lymphadenopathy no sign of infection DIFFERENTIAL DIAGNOSIS: After history and physical exam differential diagnosis was considered for TMJ versus abscess Medical Decision Making ED Course/Re-evaluation ED Course ED course 72-year-old female comes in with left-sided anterior inferior jaw discomfort consistent with probable TMJ we'll start her on a neuropathic medicine gabapentin have her follow-up in the next 7-10 days with primary care no additional imaging was indicated this time no sign of infection no sign of trauma Decision to Disposition Date: Dec 06, 2018 Decision to Disposition Time: 07:11 Depart Departure Latest Vital Signs Vital Signs Date Time Temp Pulse Resp B/P (MAP) Pulse Ox O2 Delivery O2 Flow Rate FiO2 12/06/18 06:41 98.8 61 19 157/85 99 Nasal Cannula Impression: Primary Impression: TMJ arthralgia Condition: Condition Unchanged Disposition: HOME OR SELF-CARE Referrals: ELICEO GONG APRN [facility] (PCP) 5 Days New Scripts Gabapentin (GABAPENTIN) 300 Mg Capsule 600 MG PO TID for 10 Days, #30 CAPSULE Prov: STEPHANE STEEN MD 12/06/18 Patient Instructions: Arthroscopic TMJ Procedure (DC) STEPHANE STEEN MD Dec 06, 2018 07:13
[2018-12-06 07:15] VITALS: BP 133/74
== END 2018-12-06 07:20 | disposition home or self-care (01) ==
LOC: ER 07:04
DX: M26.622 Arthralgia of left temporomandibular joint (principal)
CPT/HCPCS: 99281

== ENCOUNTER → 2019-01-11 | Outpatient (CLI) | payer MEDICARE, OTHER ==
[2016-12-14 13:11] VITALS: BMI 30.8
[~2019-01-11] MED LIST changes: +ALB18R IH; +GABA-549 PO; +IPRA3AMP10 IH; +LISI-362 PO; +PRED20TA6 PO
[2019-01-11 15:50] LABS: PLATELET COUNT, AUTOMATED 177 K/uL (150-450)
[2019-01-11 15:58] LABS: LDL CHOLESTEROL 44 mg/dl
--- NOTE | 2019-01-11 16:28 | RADIOLOGY IMAGING REPORT ---
FACILITY: [facility] - [place] PATIENT NAME: Dori Reddy : 1945 MR: [id number] V: [id number] EXAM DATE: ORDERING PHYSICIAN: ELICEO GONG TECHNOLOGIST: Location: [facility] [place] Patient: Dori Reddy : 1945 Visit/Account:[id number] Date of Sevice: 01/11/2019 EXAMINATION: Chest 2 Views HISTORY: Shortness of breath COMPARISON: 10/26/2018. FINDINGS: Stable chronic elevation of the right hemidiaphragm. There are stable fibrotic appearing interstitial changes in the lower lungs with regions of parenchymal scarring. No new focal consolidation or pleur al effusion. No pneumothorax. Normal cardiomediastinal silhouette with normal heart size and pulmonary vascularity. Aortic calcific ation. Visualized osseous structures appear intact. Surgical clips along the right axilla. IMPRESSION: 1. No evidence of acute cardiopulmonary disease. 2. Stable chronic fibrotic changes in the lower lungs. Report Dictated By: Manav Lizama MD at 01/11/2019 4:15 PM Report E-Signed By: Manav Lizama MD at 01/11/2019 4:25 PM WSN:[id number]
== END ==
LOC: LAB 14:50
PROVIDERS: ATTEND Nurse Practitioner Family
DX: R91.8 Other nonspecific abnormal finding of lung field (principal); I10 Essential (primary) hypertension; E11.9 Type 2 diabetes mellitus without complications; E78.5 Hyperlipidemia, unspecified; E53.8 Deficiency of other specified B group vitamins
CPT/HCPCS: 36415; 71046; 82040; 82247; 82310; 82374; 82435; 82465; 82565; 82607; 82746; 82947; 83036; 83718; 84075; 84132; 84155; 84295; 84443; 84450; 84460; 84478; 84520; 85025; 86140

== ENCOUNTER → 2019-02-22 | Outpatient (CLI) | payer MEDICARE, OTHER ==
[2016-12-14 13:11] VITALS: BMI 30.8
[~2019-02-22] MED LIST changes: +TRAZ50TA34 PO
--- NOTE | 2019-02-23 08:19 | RADIOLOGY IMAGING REPORT ---
FACILITY: [facility] PATIENT NAME: ALEK LOCKETT : [id number] MR: [id number] V: [id number] EXAM DATE: [id number] ORDERING PHYSICIAN: ELICEO GONG TECHNOLOGIST: Urvashi George PROCEDURE:BILATERAL DIAGNOSTIC DIGITAL MAMMOGRAM WITH CAD ASSISTED INTERPRETATION & 3D TOMOSYNTHESIS COMPARISON:Prior mammograms 02/15/18, 07/26/17, 12/07/16, 07/07/16. INDICATIONS:Prior history of breast cancer & Right breast pain. FINDINGS: The breasts are heterogeneously dense which can obscure small masses. There is an area of postsurgical scaring and architectural distortion in the upper outer quadrant of the Right breast that has remained stable. Scattered benign appearing calcifications throughout the breasts also appear stable. DIAGNOSTIC CATEGORY 2--BENIGN FINDING. RECOMMENDATIONS: ROUTINE MAMMOGRAM AND CLINICAL EVALUATION. IMPRESSION: BIRADS 2: Benign finding. No significant abnormality is seen. Dictated by: Nat Barnett M.D. on 02/22/2019 at 14:40 Transcribed by: RADHA on 02/22/2019 at 15:51 Approved by: Nat Barnett M.D. on 02/23/2019 at 8:18 [facility]
== END ==
LOC: MAMO 01:39
PROVIDERS: ATTEND Nurse Practitioner Family
DX: N64.4 Mastodynia (principal)
CPT/HCPCS: 77062; 77066

== ENCOUNTER 2019-03-26 09:34 | Outpatient (RCR) | payer MEDICARE, OTHER ==
[2016-12-14 13:11] VITALS: BMI 30.8
[~2019-03-26 09:34] MED LIST changes: -TRAZ50TA34 PO; +TRAZ50TA52 PO
--- NOTE | 2019-03-27 13:07 | PT INITIAL EVALUATION ---
MEDICAL DIAGNOSIS: bilateral lower extremity pain, low back pain, activity intolerance TREATMENT DIAGNOSIS: same DATE OF ONSET: 12/27/18 SUBJECTIVE: Dori Reddy presents to physical therapy with complaints of low back pain along with radiating pain down B LE's that started approximately 3 months ago. She reports that she feels like it is getting worse. She reports that the pain is constant in low back and in B LE's and rates it to be 7/10. She reports that the pain is worse in the am, sitting, standing, and when still. She reports that the pain is better with lying and being on the move. She reports increased pain with sneezing, coughing, and straining. She reports that she has to urinate more since the low back pain started approximately 3 months ago; however, she denies any change with bowel. She denies any accidents, unexplained weight loss, or recent/major surgery. Pain location is L3-5 along with radiating pain down B LE's and described as achy. Pain scale is 7 on a ten point pain scale. REHAB PROBLEM LIST: Increased Pain Decreased ROM Decreased Strength Decreased Endurance Decreased Balance Decreased Function Decreased Gait PREVIOUS MEDICAL HISTORY: See EMR OCCUPATION: Retired OBJECTIVE: Posture: She demonstrated B rounded shoulders, increased thoracic kyphosis, and decreased lumbar lordosis ROM: Trunk AROM: minimal reduction of flexion with empty end feel. moderate reduction of extension with muscular end feel. R/L sidegliding: minimal reduction with empty end feel. Strength: B hip abduction, flexion, extension, B knee flexion, and B ankle DF: 4-/5. B hip adduction, B knee extension, and B ankle PF: 4+/5. Palpation: TTP: L3-5 along with radiating pain down B LE's Sensation: L2-S1 intact B Special Tests: Repeated extension: muscular stretch during the test and centralizing her pain following. Mobility: Independent Gait: She demonstrated increased lateral trunk movement, increased base of support, decreased velocity, and decreased pelvic mobility. ASSESSMENT: Dori will benefit from skilled physical therapy addressing the listed impairments to improve function and QOL. Her provisional classification is posterior derangement that has responded well to extension based principles. Short Term Goals 2 weeks: Pt will demonstrate increased lumbar AROM in all directions, if she demonstrates directional preference to improve function and QOL. 4 weeks: If she demonstrates directional preference, she will demonstrate centralized low back pain and increased trunk AROM in all directions to improve function and QOL. 6 weeks: If she demonstrates directional preference, she will demonstrate abolished low back pain and full trunk AROM to return to prior level of function to improve QOL. Patient's Goals to reduce pain PLAN: Patient to be seen for Manual Therapy/STM/MET Strengthening/condition Range of Motion Spinal Stabilization Work Hardening/Cond Stretching Neuromuscular Re-ed Closed Chain Program Posture/Body mechanics Gait Trg/Balance Trg Home Exercise Program Therapeutic Activities 2x/Week for 6 Weeks If you have any questions, comments, or concerns about this report or plan, please contact me at . Thank you, Joaquin Whalen, PT, DPT MTDD
== END 2019-03-26 18:00 | disposition home or self-care (01) ==
LOC: PT 09:34
PROVIDERS: ATTEND Nurse Practitioner Family
DX: M79.604 Pain in right leg (principal); R68.89 Other general symptoms and signs; M54.5 Low back pain; N39.46 Mixed incontinence
CPT/HCPCS: 97162

== ENCOUNTER → 2019-05-17 | Outpatient (CLI) | payer MEDICARE, OTHER ==
[2016-12-14 13:11] VITALS: BMI 30.8
[2019-05-17 11:56] LABS: PLATELET COUNT, AUTOMATED 152 K/uL (150-450)
== END ==
LOC: LAB 11:09
PROVIDERS: ATTEND Nurse Practitioner Family
DX: R10.31 Right lower quadrant pain (principal)
CPT/HCPCS: 36415; 82040; 82247; 82310; 82374; 82435; 82565; 82947; 84075; 84132; 84155; 84295; 84450; 84460; 84520; 85025

== ENCOUNTER → 2019-05-21 | Outpatient (CLI) | payer MEDICARE, OTHER ==
[2016-12-14 13:11] VITALS: BMI 30.8
[~2019-05-21] MED LIST changes: +IOPAMIDOL 76% 100 ML INFUS BTL 100 ML ONE
--- NOTE | 2019-05-21 15:12 | RADIOLOGY IMAGING REPORT ---
FACILITY: [facility] PATIENT NAME: Dori Reddy : 1945 MR: [id number] V: [id number] EXAM DATE: ORDERING PHYSICIAN: ELICEO GONG TECHNOLOGIST: Location: [facility] - [place] Patient: Dori Reddy : 1945 Visit/Account:[id number] Date of Sevice: 05/21/2019 CT ABDOMEN PELVIS W & W/O CONTRAST HISTORY: Right lower quadrant pain, history of breast cancer, right lower quadrant mass TECHNIQUE: CT abdomen and pelvis with intravenous contrast. Contiguous axial images of the abdomen and pelvis was performed from the lung bases to the symphysis pubis. One of the following dose optimization techniques was utilized in the performance of this exam: Autom ated exposure control; adjustment of the mA and/or kV according to the patient's size; or use of an i terative reconstruction technique. Specific details can be referenced in the facility's radiology C T exam operational policy. CONTRAST: 79 cc of Isovue-[id number] COMPARISON: CT scan 07/27/2016 FINDINGS: Visualized lung bases: Lung bases demonstrate interstitial lung disease with subpleural interstitial thickening and some mild groundglass changes. Overall pattern is unchanged could represent UIP vers us NSIP. Hepatobiliary: There is fatty infiltration of the liver. Spleen: Negative. Adrenals: Negative. Kidneys/: Negative. Pancreas: Negative. GI: Appendix is normal. No bowel obstruction or focal inflammation. No visualized right lower quad rant mass Vessels/spaces/nodes: Atherosclerotic calcification is noted. Bones/soft tissues: Degenerative changes are noted IMPRESSION: 1. No acute pathology in the abdomen or pelvis. Appendix is normal. No visualized right lower quad rant mass. 2. No definite metastatic disease below the diaphragm. 4. Interstitial lung disease at the lung bases. Report Dictated By: Corwin Sarah MD at 05/21/2019 2:53 PM Report E-Signed By: Corwin Sarah MD at 05/21/2019 3:05 PM WSN:[email or web address]
== END ==
LOC: CT 01:02
PROVIDERS: ATTEND Nurse Practitioner Family
DX: R10.31 Right lower quadrant pain (principal); R19.03 Right lower quadrant abdominal swelling, mass and lump; Z85.3 Personal history of malignant neoplasm of breast
CPT/HCPCS: 74178; Q9967